=== PATIENT | female | born 1975 | race Caucasian/White ===

== ENCOUNTER 2017-03-16 11:57 | Emergency (ER) | payer BC ==
[2017-03-16] MEDS ORDERED: HYDROcodone/Acetaminophen 10/325 mg Tablet ONE (13:52)
[2017-03-16] MEDS ORDERED: methylPREDNISolone Sod Succ/PF 125 MG/2 ML VIAL ONE (13:52)
[2017-03-16 14:20] LABS: Bilirubin Negative (Negative); Blood, Urine Large (Negative); Glucose, Urine (Dipstick) Negative (Negative); Ketone, Urine Negative (Negative); Nitrite Negative (Negative); Protein, Urine (Dipstick) Negative (Neg-Trace); Urobilinogen 0.2 mg/dL (0.2-1.0)
[2017-03-16 14:30] LABS: Mean Platelet Volume 6.1 fL (7.4-10.4); Red Blood Cell (RBC) Count 4.29 mill/uL (4.20-5.40); White Blood Cell (WBC) Count 19.5 thou/uL (4.8-10.8)
[2017-03-16 14:32] LABS: Bacteria/HPF None Seen HPF (None Seen); Hyaline Casts/LPF 0-3 HYALINE CAST LPF (0-3 Hyaline); Squamous Epithelial None Seen HPF (0-3); WBC/HPF None Seen HPF (0-3)
[2017-03-16 14:45] LABS: Band 7 % (5-11); Neutrophil 75 % (42-75)
[2017-03-16 14:46] LABS: ALT (SGPT) 14 U/L (8-55); AST (SGOT) 21 U/L (5-34); Alkaline Phosphatase 54 U/L (40-150); Anion Gap 11 mmol/L (10-20); BUN (Urea Nitrogen) 5 mg/dL (7.0-18.7); Bilirubin, Total 0.2 mg/dL (0.2-1.2); Calc. Creatinine Clearance 0 mL/min (70-130); Calcium 8.6 mg/dL (7.8-10.44); Carbon Dioxide 29 mmol/L (22-29); Chloride 100 mmol/L (98-107); Estimated GFR-MDRD Greater than 90; Protein, Total 6.5 g/dL (6.0-8.3)
[2017-03-16] MEDS ORDERED: Potassium Chloride 20 MEQ TAB ONE (15:23)
== END 2017-03-16 15:22 | disposition home or self-care (01) ==
LOC: ERS 11:57
DX: M32.9 Systemic lupus erythematosus, unspecified (principal); H10.9 Unspecified conjunctivitis; I73.00 Raynaud's syndrome without gangrene; F17.210 Nicotine dependence, cigarettes, uncomplicated; M06.9 Rheumatoid arthritis, unspecified; M45.9 Ankylosing spondylitis of unspecified sites in spine
CPT/HCPCS: 36415; 80053; 81003; 81015; 85025; 96372; J2930

== ENCOUNTER 2017-04-16 08:53 | Emergency (ER) | payer BC ==
[2017-04-16 11:57] LABS: Bilirubin Negative (Negative); Blood, Urine Moderate (Negative); Glucose, Urine (Dipstick) Negative (Negative); Ketone, Urine Negative (Negative); Nitrite Negative (Negative); Protein, Urine (Dipstick) Negative (Neg-Trace); Urobilinogen 0.2 mg/dL (0.2-1.0)
[2017-04-16 12:02] LABS: Bacteria/HPF None Seen HPF (None Seen); Hyaline Casts/LPF 0-3 HYALINE CAST LPF (0-3 Hyaline); Squamous Epithelial 0-3 HPF (0-3); WBC/HPF None Seen HPF (0-3)
== END 2017-04-16 12:10 | disposition left against medical advice (07) ==
LOC: ERS 08:53
DX: R53.1 Weakness (principal); M06.9 Rheumatoid arthritis, unspecified; M32.9 Systemic lupus erythematosus, unspecified; Z79.891 Long term (current) use of opiate analgesic; Z79.899 Other long term (current) drug therapy
CPT/HCPCS: 81003; 81015; 99284

== ENCOUNTER 2017-05-24 17:29 | Inpatient (IN) | payer BC ==
[2017-05-24 18:39] LABS: #Eosinphils 0.1 thou/uL (0.0-0.7); #Lymphocytes 1.1 thou/uL (1.20-3.40); #Monocytes 0.6 thou/uL (0.11-0.59); #Neutrophils 5.7 thou/uL (1.40-6.50); %Basophils 0.4 % (0.0-1.0); %Eosinophils 1.8 % (0.0-10.0); %Lymphocytes 14.8 % (21.0-51.0); %Monocytes 7.4 % (0.0-10.0); Hematocrit 35.1 % (36.0-47.0); Mean Platelet Volume 6.9 fL (7.4-10.4); Red Blood Cell (RBC) Count 3.68 mill/uL (4.20-5.40); White Blood Cell (WBC) Count 7.6 thou/uL (4.8-10.8)
[2017-05-24 18:56] LABS: Lactic Acid - Sepsis 1.5 mmol/L (0.5-2.2)
[2017-05-24 19:01] LABS: ALT (SGPT) 13 U/L (8-55); AST (SGOT) 40 U/L (5-34); Alkaline Phosphatase 47 U/L (40-150); Anion Gap 13 mmol/L (10-20); BUN (Urea Nitrogen) 10 mg/dL (7.0-18.7); Bilirubin, Total Less than 0.2 mg/dL (0.2-1.2); Calc. Creatinine Clearance 0 mL/min (70-130); Carbon Dioxide 31 mmol/L (22-29); Chloride 102 mmol/L (98-107); Estimated GFR-MDRD 86; Globulin 3.6 g/dL (2.4-3.5); Protein, Total 6.7 g/dL (6.0-8.3)
--- NOTE | 2017-05-24 19:07 | RAD ---
CHEST PA AND LATERAL: 05/24/17 HISTORY: 41-year-old female with cough. Treated for pneumonia with high fever. COMPARISON: 11/14/16. There is some minimal patchy interstitial and alveolar opacities in the perihilar regions bilaterally , slightly worse on the left side raising concern for minimal bilateral atypical pneumonia or pneumon itis. Heart size is normal. There is no pleural effusion. IMPRESSION: Minimal patchy bilateral perihilar interstitial and alveolar opacity slightly worse on the left side raising concern for some type of nonspecific pneumonitis. These patchy changes, particularly in the l eft side due appear more prominent than on the prior study. POS: [facility]
[2017-05-24] MEDS ORDERED: Azithromycin 500 MG VIAL ONE (19:39)
[2017-05-24] MEDS ORDERED: cefTRIAXone\\ROCEPHIN 2 GM in Sodium Chloride 0.9% 100 ML IVPB SCH ×3 (19:45→23:59)
[2017-05-24] MEDS ORDERED: Doxycycline 100 MG CAP PO SCH (20:45)
[2017-05-24] MEDS ORDERED: Ondansetron ODT 4 MG TAB SL PRN (21:44)
[2017-05-24] MEDS ORDERED: Sodium Chloride 0.9% 1,000 ML IV SCH (21:44)
[2017-05-24] MEDS ORDERED: Ondansetron HCl/PF 4 MG/2 ML Vial IVP PRN ×3 (21:44→23:20)
[2017-05-24] MEDS ORDERED: Acetaminophen 325 MG TAB PO PRN (21:44)
[2017-05-24 21:50] VITALS: BMI 31.1
[2017-05-24] MEDS ORDERED: Mag-Al 1200 mg/1200 mg/30 ML UDCUP PO PRN (23:20)
[2017-05-24] MEDS ORDERED: Ondansetron ODT 4 MG TAB PO PRN ×2 (23:20)
[2017-05-24] MEDS ORDERED: hydrALAZINE 20 MG/ML VIAL SLOW IVP PRN (23:20)
[2017-05-24] MEDS ORDERED: Lorazepam 2 MG/ML VIAL SLOW IVP PRN (23:20)
[2017-05-24] MEDS: Zolpidem Tartrate 5 MG TAB PO PRN (23:59)
[2017-05-24] MEDS ORDERED: Fiorinal 325/50/40 mg Tablet PO SCH (23:59)
[2017-05-25] MEDS: HYDROcodone/Acetaminophen 10/325 mg Tablet PO PRN ×5 (00:14→20:49)
[2017-05-25] MEDS ORDERED: Famotidine 20 MG TAB PO SCH (00:15)
[2017-05-25] MEDS ORDERED: Doxycycline 100 MG CAP PO SCH (00:15)
[2017-05-25] MEDS ORDERED: sulfaSALAzine 500 MG TAB PO SCH (00:15)
[2017-05-25] MEDS ORDERED: Hydroxychloroquine Sulfate 200 MG TAB PO SCH (00:15)
[2017-05-25] MEDS ORDERED: Divalproex Sodium 250 MG (DR) TAB PO SCH (00:15)
[2017-05-25] MEDS ORDERED: Docusate 100 MG CAP PO SCH (00:15)
[2017-05-25] MEDS: Acetaminophen 325 MG TAB PO PRN ×4 (00:16→20:43)
--- NOTE | 2017-05-25 04:21 | HP ---
PRIMARY CARE PHYSICIAN: Dr. James. CHIEF COMPLAINT: Cough and shortness of breath. HISTORY OF PRESENT ILLNESS: Ms. Mae is a pleasant 41-year-old female who has a history of system ic lupus as well as rheumatoid arthritis. She was in her usual state of health until approximately a week prior to admission. She says that she was having problems with coughing and body aches and debra n all over. She says that the cough is primarily a dry cough. She has shortness of breath associate d with it as well as occasional chest pain. She went to the [facility] and was prescribed a Z-Bill and given "cephalosporin" and says that she completed the antibiotics. She started feeling bet ter after about 3-4 days, but then started feeling worse again. She says that she started having a h igh fever again, says that she was walking in the store and almost passed out and as a result came to the emergency room for evaluation. In the ER, she had a CT scan of the chest done, which showed pos sible patchy bilateral infiltrates and is being admitted for failed outpatient treatment for pneumoni a. REVIEW OF SYSTEMS: Constitutional: There have been subjective fever and chills. No night sweats, n o weight loss. HEENT: No headaches, no dizziness, no sore throat, rhinorrhea, neck pain, no adenopa thy. Pulmonary: As the history of present illness with no hemoptysis. Cardiovascular: She has had some chest pain off and on primarily with coughing. No PND, no orthopnea. Gastrointestinal: No ab dominal pain, no nausea, no vomiting, no change in bowels. Genitourinary: No urinary frequency, hem aturia, no hesitancy. Neurologic: No focal weakness, numbness, no seizures. Psychiatric: No sympt oms of anxiety or depression. Skin and Integument: No skin changes. No rash. PAST MEDICAL HISTORY: Significant for systemic lupus, rheumatoid arthritis, Raynaud's syndrome, panc reatitis, seizure disorder, mastoiditis, history of encephalitis and meningitis. PAST SURGICAL HISTORY: She has had a x3, bilateral tubal ligation. SOCIAL HISTORY: She smokes about a pack a day for 10 years. Denies any alcohol use. CODE STATUS: FULL CODE. FAMILY HISTORY: Significant for lupus. ALLERGIES: PENICILLIN, NSAIDS, LEVAQUIN, which causes some type of tendon problem. MEDICATIONS: Include Plaquenil 400 mg daily, sulfasalazine 500 mg 2 tabs in the evening, prednisone 20 mg daily, Plaquenil 200 mg 2 tabs in the evening, [place] 10/325 one tab q.4 hours, divalproex 750 m g at bedtime, Fiorinal p.r.n. and an inhaler. PHYSICAL EXAMINATION: GENERAL: She is alert and oriented. She appears to be in no acute distress. VITAL SIGNS: Blood pressure was 135/83, heart rate 80, respiratory rate of 16, temperature was 100.2 . HEENT: Pupils are equal, round, and reactive. Extraocular muscles are intact. Her sclerae are anic teric. Throat: No erythema, no exudates. NECK: No adenopathy, no bruits. LUNGS: She has got some rhonchi and some very very faint rales throughout. CARDIOVASCULAR: She has a normal S1, S2. I did not appreciate an S3 or S4. No murmurs, clicks or r ubs. ABDOMEN: Obese, it is soft, it is nontender, nondistended. Positive for bowel sounds. There is no rebound, no guarding. EXTREMITIES: There is no edema. NEUROLOGICALLY: The exam is nonfocal. LABORATORY DATA: White blood cell count 7.6, hemoglobin 12, hematocrit is 35.1, platelet count is 36 3. Sodium 142, potassium 4.0, chloride is 102, CO2 was 31, BUN of 10, creatinine 0.74, glucose is 85 . ASSESSMENT AND PLAN: 1. This is a pleasant 41-year-old female who is being admitted due to a failed outpatient treatment for pneumonia. She has already completed a full course of azithromycin and she has multiple antibiot ic allergies. For this reason, we will choose to continue Rocephin and add doxycycline to cover atyp icals and this has actually already been started in the ER. We will also add DuoNebs, as well as she may have some degree of chronic obstructive pulmonary disease as she has a history of smoking. 2. For systemic lupus, we will continue her usual medications and restart her on prednisone as well as Plaquenil. 3. For Seizure disorder, we will continue her divalproex and place her on some seizure precautions. 4. We will also place her on deep venous thrombosis and gastrointestinal prophylaxis.
[2017-05-25 05:13] LABS: Hematocrit 34.6 % (36.0-47.0); Mean Platelet Volume 6.2 fL (7.4-10.4); Red Blood Cell (RBC) Count 3.61 mill/uL (4.20-5.40); White Blood Cell (WBC) Count 6.1 thou/uL (4.8-10.8)
[2017-05-25 05:14] LABS: #Basophils 0.1 thou/uL (0.0-0.2); #Eosinphils 0.2 thou/uL (0.0-0.7); #Monocytes 0.6 thou/uL (0.11-0.59); #Neutrophils 4.2 thou/uL (1.40-6.50); %Basophils 1.3 % (0.0-1.0); %Eosinophils 3.1 % (0.0-10.0); %Lymphocytes 16.7 % (21.0-51.0); %Monocytes 10.2 % (0.0-10.0)
[2017-05-25 05:33] LABS: Anion Gap 12 mmol/L (10-20); BUN (Urea Nitrogen) 7 mg/dL (7.0-18.7); Calc. Creatinine Clearance 156 mL/min (70-130); Calcium 8.3 mg/dL (7.8-10.44); Carbon Dioxide 24 mmol/L (22-29); Chloride 105 mmol/L (98-107); Estimated GFR-MDRD Greater than 90
[2017-05-25] MEDS: Docusate 100 MG CAP PO SCH ×2 (08:07→20:43)
[2017-05-25] MEDS: predniSONE 20 MG TAB PO SCH (08:07)
[2017-05-25] MEDS: Doxycycline 100 MG CAP PO SCH ×2 (08:07→20:40)
[2017-05-25] MEDS: Famotidine 20 MG TAB PO SCH ×2 (08:08→20:42)
[2017-05-25] MEDS: Enoxaparin Sodium 40 MG/0.4 ML SYRINGE SC SCH (08:08)
[2017-05-25] MEDS ORDERED: Piperacillin/Tazobactam 4.5 GM in Sodium Chloride 0.9% 100 ML IVPB SCH (14:30)
--- NOTE | 2017-05-25 15:19 | PDOC.PN ---
- Subjective Encounter Start Date: 05/25/17 Encounter Start Time: 10:20 Pt seen for followup re; pneumonia. Reports cough, sputum, fevers. No chest pain. - Objective Resuscitation Status: Resuscitation Status FULL:Full Resuscitation MAR Reviewed: Yes Vital Signs & Weight: Vital Signs (12 hours) Temp Pulse Resp BP Pulse Ox 05/25/17 11:40 99.4 F 96 16 120/80 96 05/25/17 08:11 100.3 F H 91 16 123/85 94 L 05/25/17 08:00 100.3 F H 91 16 94 L 05/25/17 04:00 98.9 F 93 18 126/84 94 L Weight Weight 181 lb 3.2 oz I&O: 05/24/17 05/25/17 05/26/17 06:59 06:59 06:59 Intake Total 1860 Balance 1860 Result Diagrams: 05/25/17 04:00 05/25/17 04:00 Phys Exam - Physical Examination Constitutional: NAD HEENT: moist MMs Neck: supple Respiratory: clear to auscultation bilateral Cardiovascular: RRR Gastrointestinal: soft Neurological: moves all 4 limbs Psychiatric: normal affect Skin: no rash Dx/Plan (1) CAP (community acquired pneumonia) Code(s): J18.9 - PNEUMONIA, UNSPECIFIED ORGANISM Status: Acute (2) Seizure disorder Code(s): G40.909 - EPILEPSY, UNSP, NOT INTRACTABLE, WITHOUT STATUS EPILEPTICUS Status: Chronic (3) Lupus Code(s): M32.9 - SYSTEMIC LUPUS ERYTHEMATOSUS, UNSPECIFIED Status: Chronic (4) Migraine Code(s): G43.909 - MIGRAINE, UNSP, NOT INTRACTABLE, WITHOUT STATUS MIGRAINOSUS Status: Chronic Qualifiers: Migraine type: unspecified Intractability: intractable - Plan continue antibiotics, out of bed/ambulate * . Pt on chronic steroid therapy, consult PCCM for opinion and help with management. Pt failed cephalosporin therapy as outpatient. Change ceftriaxone to Zosyn. Pt has penicillin allergy (rash). Discussed chance of cross-reactivity. Change pt's status to inpatient. Continue valproic acid. Review of Systems - Review of Systems Constitutional: fever, chills, weakness Respiratory: Cough, Sputum. negative: Dry, Shortness of Breath, Hemoptysis, SOB with Excertion, Pleuritic Pain, Wheezing Cardiovascular: negative: chest pain, palpitations, orthopnea, paroxysmal nocturnal dyspnea, edema, light headedness - Medications/Allergies Allergies/Adverse Reactions: Allergies Allergy/AdvReac Type Severity Reaction Status Date / Time NSAIDS (Non-Steroidal Allergy Intermediate Rash Verified 05/24/17 21:44 Anti-Inflamma Penicillins Allergy Intermediate RASH, SOB Verified 05/24/17 21:44 levofloxacin [From Levaquin] Allergy Mild Verified 05/24/17 21:44 tramadol Allergy Mild RASH, ABD Verified 05/24/17 21:44 PAIN Medications: Current Medications Acetaminophen (Tylenol) 650 mg PO Q4H PRN PRN Reason: Headache/Fever or Pain Last Admin: 05/25/17 14:05 Dose: 650 mg Hydrocodone Bitart/Acetaminophen ([place] 10/325) 1 tab PO Q4H PRN PRN Reason: Moderate Pain (4-6) Last Admin: 05/25/17 11:57 Dose: 1 tab Al Hydroxide/Mg Hydroxide (Maalox) 15 ml PO Q4H PRN PRN Reason: Heartburn or Indigestion Albuterol/Ipratropium (Duoneb) 3 ml NEB Q4H PRN PRN Reason: SOB &/or Wheezing Butalbital/Aspirin/Caffeine (Fiorinal) 1 tab PO HS [facility] Divalproex Sodium (Depakote) 750 mg PO HS [facility] Docusate Sodium (Colace) 100 mg PO BID [facility] Last Admin: 05/25/17 08:07 Dose: Not Given Doxycycline Hyclate (Vibramycin) 100 mg PO BID [facility] Last Admin: 05/25/17 08:07 Dose: 100 mg Enoxaparin Sodium (Lovenox) 40 mg SC 0900 [facility] Last Admin: 05/25/17 08:08 Dose: 40 mg Famotidine (Pepcid) 20 mg PO BID [facility] Last Admin: 05/25/17 08:08 Dose: 20 mg Hydralazine HCl (Apresoline) 10 mg SLOW IVP Q4H PRN PRN Reason: Systolic BP > 180 Hydroxychloroquine Sulfate (Plaquenil) 400 mg PO HS [facility] Piperacillin Sod/Tazobactam (Sod 4.5 gm/ Sodium Chloride) 100 mls @ 200 mls/hr IVPB Q8HR [facility] Piperacillin Sod/Tazobactam (Sod 4.5 gm/ Sodium Chloride) 100 mls @ 200 mls/hr IVPB NOW [facility] Stop: 05/25/17 17:00 Last Admin: 05/25/17 15:08 Dose: 100 mls Lorazepam (Ativan) 2 mg SLOW IVP Q15MIN PRN PRN Reason: Seizures Ondansetron HCl (Zofran Odt) 4 mg PO Q6H PRN PRN Reason: Nausea/Vomiting Ondansetron HCl (Zofran) 4 mg IVP Q6H PRN PRN Reason: Nausea/Vomiting Prednisone (Prednisone) 20 mg PO QAM-[facility] Last Admin: 05/25/17 08:07 Dose: 20 mg Sulfasalazine (Azulfidine) 1,000 mg PO HS [facility] Zolpidem Tartrate (Ambien) 5 mg PO HSPRN PRN PRN Reason: Insomnia Last Admin: 05/24/17 23:59 Dose: 5 mg
[2017-05-25] MEDS: Zolpidem Tartrate 5 MG TAB PO PRN (20:40)
[2017-05-25] MEDS: Divalproex Sodium 250 MG (DR) TAB PO SCH (20:41)
[2017-05-25] MEDS: Hydroxychloroquine Sulfate 200 MG TAB PO SCH (20:41)
[2017-05-25] MEDS: sulfaSALAzine 500 MG TAB PO SCH (20:42)
[2017-05-25] MEDS: Fiorinal 325/50/40 mg Tablet PO SCH (20:56)
[2017-05-25] MEDS: Piperacillin/Tazobactam 4.5 GM in Sodium Chloride 0.9% 100 ML IVPB SCH (22:30)
[2017-05-26] MEDS: Zolpidem Tartrate 5 MG TAB PO PRN ×2 (00:57→20:41)
[2017-05-26] MEDS: HYDROcodone/Acetaminophen 10/325 mg Tablet PO PRN ×6 (00:57→22:29)
[2017-05-26] MEDS: Piperacillin/Tazobactam 4.5 GM in Sodium Chloride 0.9% 100 ML IVPB SCH ×3 (06:50→22:28)
[2017-05-26] MEDS: Docusate 100 MG CAP PO SCH ×2 (08:08→20:42)
[2017-05-26] MEDS: Doxycycline 100 MG CAP PO SCH ×2 (08:10→20:40)
[2017-05-26] MEDS: Enoxaparin Sodium 40 MG/0.4 ML SYRINGE SC SCH (08:10)
[2017-05-26] MEDS: Famotidine 20 MG TAB PO SCH ×2 (08:10→20:42)
[2017-05-26] MEDS: predniSONE 20 MG TAB PO SCH (08:10)
[2017-05-26] MEDS: Acetaminophen 325 MG TAB PO PRN ×2 (09:41→22:30)
--- NOTE | 2017-05-26 13:52 | PDOC.PN ---
- Subjective Encounter Start Date: 05/26/17 Encounter Start Time: 09:40 Pt seen for followup re; pneumonia. Cough+. Sputum+. No fever today. - Objective Resuscitation Status: Resuscitation Status FULL:Full Resuscitation MAR Reviewed: Yes Vital Signs & Weight: Vital Signs (12 hours) Temp Pulse Resp BP Pulse Ox 05/26/17 10:16 71 14 98 05/26/17 08:00 98.5 F 63 16 05/26/17 07:29 98.5 F 63 16 106/73 97 05/26/17 05:01 69 12 98 05/26/17 03:59 98.7 F 60 16 102/67 98 Weight Weight 181 lb 3.2 oz I&O: 05/25/17 05/26/17 05/27/17 06:59 06:59 06:59 Intake Total 1859 1899 Balance 1859 1899 Result Diagrams: 05/25/17 04:00 05/25/17 04:00 Phys Exam - Physical Examination Obese HEENT: moist MMs, oral pharynx no lesions Neck: supple Respiratory: no wheezing, no rales, no rhonchi, clear to auscultation bilateral Cardiovascular: RRR Gastrointestinal: soft Musculoskeletal: pulses present Neurological: moves all 4 limbs Psychiatric: normal affect Skin: no rash Dx/Plan (1) CAP (community acquired pneumonia) Code(s): J18.9 - PNEUMONIA, UNSPECIFIED ORGANISM Status: Acute (2) Seizure disorder Code(s): G40.909 - EPILEPSY, UNSP, NOT INTRACTABLE, WITHOUT STATUS EPILEPTICUS Status: Chronic (3) Lupus Code(s): M32.9 - SYSTEMIC LUPUS ERYTHEMATOSUS, UNSPECIFIED Status: Chronic (4) Migraine Code(s): G43.909 - MIGRAINE, UNSP, NOT INTRACTABLE, WITHOUT STATUS MIGRAINOSUS Status: Chronic Qualifiers: Migraine type: unspecified Intractability: intractable - Plan continue antibiotics, out of bed/ambulate, DVT proph w/lovenox * . Continue IV Zosyn, doxycycline. Await pulmonology consult. Await blood cultures. Continue Plaquenil, prednisone, sulfasalazine. Review of Systems - Review of Systems Constitutional: weakness, malaise. negative: fever, chills, sweats Respiratory: Cough, Sputum. negative: Dry, Shortness of Breath, Hemoptysis, SOB with Excertion, Pleuritic Pain, Wheezing Cardiovascular: negative: chest pain, palpitations, orthopnea, paroxysmal nocturnal dyspnea, edema, light headedness - Medications/Allergies Allergies/Adverse Reactions: Allergies Allergy/AdvReac Type Severity Reaction Status Date / Time NSAIDS (Non-Steroidal Allergy Intermediate Rash Verified 05/24/17 21:44 Anti-Inflamma Penicillins Allergy Intermediate RASH, SOB Verified 05/24/17 21:44 levofloxacin [From Levaquin] Allergy Mild Verified 05/24/17 21:44 tramadol Allergy Mild RASH, ABD Verified 05/24/17 21:44 PAIN Medications: Current Medications Acetaminophen (Tylenol) 650 mg PO Q4H PRN PRN Reason: Headache/Fever or Pain Last Admin: 05/26/17 09:41 Dose: 650 mg Hydrocodone Bitart/Acetaminophen ([place] 10/325) 1 tab PO Q4H PRN PRN Reason: Moderate Pain (4-6) Last Admin: 05/26/17 10:25 Dose: 1 tab Al Hydroxide/Mg Hydroxide (Maalox) 15 ml PO Q4H PRN PRN Reason: Heartburn or Indigestion Albuterol/Ipratropium (Duoneb) 3 ml NEB Q4H PRN PRN Reason: SOB &/or Wheezing Last Admin: 05/26/17 10:16 Dose: 3 ml Butalbital/Aspirin/Caffeine (Fiorinal) 1 tab PO HS [facility] Last Admin: 05/25/17 20:56 Dose: 1 tab Divalproex Sodium (Depakote) 750 mg PO [facility] Last Admin: 05/25/17 20:41 Dose: 750 mg Docusate Sodium (Colace) 100 mg PO BID [facility] Last Admin: 05/26/17 08:08 Dose: Not Given Doxycycline Hyclate (Vibramycin) 100 mg PO BID [facility] Last Admin: 05/26/17 08:10 Dose: 100 mg Enoxaparin Sodium (Lovenox) 40 mg SC 0900 [facility] Last Admin: 05/26/17 08:10 Dose: 40 mg Famotidine (Pepcid) 20 mg PO BID [facility] Last Admin: 05/26/17 08:10 Dose: 20 mg Hydralazine HCl (Apresoline) 10 mg SLOW IVP Q4H PRN PRN Reason: Systolic BP > 180 Hydroxychloroquine Sulfate (Plaquenil) 400 mg PO HS [facility] Last Admin: 05/25/17 20:41 Dose: 400 mg Piperacillin Sod/Tazobactam (Sod 4.5 gm/ Sodium Chloride) 100 mls @ 200 mls/hr IVPB Q8HR [facility] Last Admin: 05/26/17 06:50 Dose: 100 mls Lorazepam (Ativan) 2 mg SLOW IVP Q15MIN PRN PRN Reason: Seizures Ondansetron HCl (Zofran Odt) 4 mg PO Q6H PRN PRN Reason: Nausea/Vomiting Ondansetron HCl (Zofran) 4 mg IVP Q6H PRN PRN Reason: Nausea/Vomiting Prednisone (Prednisone) 20 mg PO QAM-[facility] Last Admin: 05/26/17 08:10 Dose: 20 mg Sulfasalazine (Azulfidine) 1,000 mg PO HS [facility] Last Admin: 05/25/17 20:42 Dose: 1,000 mg Zolpidem Tartrate (Ambien) 5 mg PO HSPRN PRN PRN Reason: Insomnia Last Admin: 05/26/17 00:57 Dose: 5 mg
[2017-05-26 14:22] LABS: #Lymphocytes 0.5 thou/uL (1.20-3.40); #Monocytes 0.3 thou/uL (0.11-0.59); #Neutrophils 5.3 thou/uL (1.40-6.50); %Eosinophils 0.3 % (0.0-10.0); %Lymphocytes 7.5 % (21.0-51.0); %Monocytes 5.6 % (0.0-10.0); Hematocrit 36.5 % (36.0-47.0); Red Blood Cell (RBC) Count 3.78 mill/uL (4.20-5.40); White Blood Cell (WBC) Count 6.1 thou/uL (4.8-10.8)
[2017-05-26 14:44] LABS: Anion Gap 12 mmol/L (10-20); BUN (Urea Nitrogen) 6 mg/dL (7.0-18.7); Calc. Creatinine Clearance 132 mL/min (70-130); Calcium 8.9 mg/dL (7.8-10.44); Carbon Dioxide 30 mmol/L (22-29); Chloride 106 mmol/L (98-107); Estimated GFR-MDRD 89
[2017-05-26] MEDS: Fiorinal 325/50/40 mg Tablet PO SCH (20:40)
[2017-05-26] MEDS: Divalproex Sodium 250 MG (DR) TAB PO SCH (20:41)
[2017-05-26] MEDS: Hydroxychloroquine Sulfate 200 MG TAB PO SCH (20:42)
[2017-05-26] MEDS: sulfaSALAzine 500 MG TAB PO SCH (20:43)
[2017-05-26] MEDS ORDERED: predniSONE 5 MG TAB PO SCH (21:00)
[2017-05-27] MEDS: Zolpidem Tartrate 5 MG TAB PO PRN ×2 (00:21→23:20)
[2017-05-27] MEDS: Acetaminophen 325 MG TAB PO PRN (02:31)
[2017-05-27] MEDS: HYDROcodone/Acetaminophen 10/325 mg Tablet PO PRN ×6 (02:33→23:19)
[2017-05-27 05:24] LABS: #Lymphocytes 1.4 thou/uL (1.20-3.40); #Monocytes 0.7 thou/uL (0.11-0.59); #Neutrophils 6.9 thou/uL (1.40-6.50); %Basophils 0.3 % (0.0-1.0); %Eosinophils 0.3 % (0.0-10.0); %Lymphocytes 15.8 % (21.0-51.0); %Monocytes 7.2 % (0.0-10.0); Hematocrit 35.5 % (36.0-47.0); Mean Platelet Volume 6.4 fL (7.4-10.4); Red Blood Cell (RBC) Count 3.69 mill/uL (4.20-5.40)
[2017-05-27 05:46] LABS: Anion Gap 15 mmol/L (10-20); BUN (Urea Nitrogen) 5 mg/dL (7.0-18.7); Calc. Creatinine Clearance 144 mL/min (70-130); Carbon Dioxide 23 mmol/L (22-29); Chloride 107 mmol/L (98-107); Estimated GFR-MDRD Greater than 90
[2017-05-27] MEDS: Piperacillin/Tazobactam 4.5 GM in Sodium Chloride 0.9% 100 ML IVPB SCH ×3 (06:32→23:20)
--- NOTE | 2017-05-27 07:00 | CON ---
DATE OF CONSULTATION: 05/26/2017 HISTORY OF PRESENT ILLNESS: Ms. Mae is a very pleasant woman who has both lupus and rheumatoid a rthritis. She also has Raynaud's and seizure disorder. She is followed by the [facility] rheum atologist. She has had meningitis, encephalitis in the past and has seizure disorder. She presented with coughing and body aching. Her sons had the influenza. She was seen in Urgent Care and given a Z-Bill and cephalosporins. She started feeling better and the n also had been started feeling worse, having fever again. Chest x-ray was only had subtle abnormalities as did the chest CT. She subsequently was admitted for pneumonia. PAST MEDICAL HISTORY: Remarkable for C-sections x3, tubal ligation, history of mastoiditis for which she had a PICC line and was cared for by Dr. العراقي she tells me. She has been a smoker, up to a pack a day. She denies daily drinking. She does not use drugs. FAMILY HISTORY: Positive for vasculitis. ALLERGIES: She reports PENICILLIN, NONSTEROIDAL and QUINOLONE intolerance. SOCIAL HISTORY: She is . Her is in the room, her son was in the room. I believe the Infectious Disease director of services in her area of interest is influenza. MEDICATIONS: She is on Plaquenil, sulfasalazine, prednisone, [place], valproate and Fiorinal p.r.n. as well as metered dose inhaler some kind. PHYSICAL EXAMINATION: GENERAL: She is in no distress. She actually looks quite well. VITAL SIGNS: She is afebrile. She was febrile to 100.9 shortly after admission on the night of the . Heart rate is in the 70s, respiratory rate is in the teens, oximetry is 98. HEENT: Pupils are equal. Sclerae is anicteric. NECK: Supple. LUNGS: Clear. HEART: Regular rhythm. S1 and S2 are normal. ABDOMEN: Soft and nontender. EXTREMITIES: Without asymmetry. LABORATORY DATA: White count 6.1, hemoglobin 12.3, platelets 347. Sodium 144, potassium 3.6, chloride 106, bicarb 30, BUN 6, creatinine 0.7. I reviewed her CT and bacilio st radiograph. IMPRESSION AND PLAN: 1. Pneumonia? influenza related versus an atypical organism. I would have thought Zithromax would h ave helped, but she is currently on doxycycline, so Zosyn appears to have defervesced. I doubt her s ubtle patchy infiltrates or pneumococcal. I doubt this is a lupus flare, but certainly must remain in the differential. I doubt this is rheuma toid lung disease. I will be happy to follow with the other physicians caring for her. She remains afebrile. She should go home with 2 weeks of doxycycline and continue with her steroids and her othe r medicines for vasculitis.
[2017-05-27] MEDS: Doxycycline 100 MG CAP PO SCH ×2 (08:57→21:37)
[2017-05-27] MEDS: Famotidine 20 MG TAB PO SCH ×2 (08:58→21:36)
[2017-05-27] MEDS: Enoxaparin Sodium 40 MG/0.4 ML SYRINGE SC SCH (08:58)
[2017-05-27] MEDS: predniSONE 20 MG TAB PO SCH (08:58)
[2017-05-27] MEDS: Docusate 100 MG CAP PO SCH ×2 (09:05→21:34)
[2017-05-27] MEDS ORDERED: Chloraseptic Spray 180 ml Bottle PO PRN (11:22)
[2017-05-27] MEDS ORDERED: Cepastat Lozenges 1 LOZ PO PRN (11:22)
--- NOTE | 2017-05-27 11:58 | PDOC.PN ---
- Subjective Encounter Start Date: 05/27/17 Encounter Start Time: 11:30 Patient seen and examined. Cough - nonproductive. No overnight events - Objective Resuscitation Status: Resuscitation Status FULL:Full Resuscitation MAR Reviewed: Yes Vital Signs & Weight: Vital Signs (12 hours) Temp Pulse Resp BP BP Pulse Ox 05/27/17 11:34 98.4 F 66 16 121/79 05/27/17 08:00 98.6 F 67 16 114/73 94 L 05/27/17 06:35 98.8 F 82 18 135/84 99 Weight Weight 181 lb 3.2 oz I&O: 05/26/17 05/27/17 05/28/17 06:59 06:59 06:59 Intake Total 1900 360 Balance 1900 360 Result Diagrams: 05/27/17 04:00 05/27/17 04:00 Phys Exam - Physical Examination Constitutional: NAD Respiratory: no wheezing, no rhonchi Scat rales at bases Cardiovascular: RRR, no rub Gastrointestinal: soft, non-tender, positive bowel sounds Musculoskeletal: no edema Neurological: moves all 4 limbs Dx/Plan - Plan continue antibiotics, respiratory therapy, out of bed/ambulate, DVT proph w/ lovenox, DVT proph w/SCDs IMPRESSION: 1. Sepsis due to [place] Pneumonia ?Atypical organism - failed outpatient Rx 2. SLE - on Chronic Steroids 3. RA 4. Seizure disorder 5. Hypokalemia - corrected PLAN: * Cont Zosyn/Doxy * Pulm following * Cont to monitor * DC home in AM if afebrile (had temp 100.2 last night per patient - [facility] * Cont current meds as below * Change Prednisone to 20 mg daily (now is on 20 mg QAM with 10 mg HS) * Add Antitussives Review of Systems - Review of Systems Respiratory: Cough, Dry. negative: Shortness of Breath, Hemoptysis, SOB with Excertion, Pleuritic Pain, Sputum, Wheezing Cardiovascular: negative: chest pain, palpitations, orthopnea, paroxysmal nocturnal dyspnea, edema, light headedness Gastrointestinal: negative: Nausea, Vomiting, Abdominal Pain, Diarrhea, Constipation, Melena, Hematochezia - Medications/Allergies Allergies/Adverse Reactions: Allergies Allergy/AdvReac Type Severity Reaction Status Date / Time NSAIDS (Non-Steroidal Allergy Intermediate Rash Verified 05/24/17 21:44 Anti-Inflamma Penicillins Allergy Intermediate RASH, SOB Verified 05/24/17 21:44 levofloxacin [From Levaquin] Allergy Mild Verified 05/24/17 21:44 tramadol Allergy Mild RASH, ABD Verified 05/24/17 21:44 PAIN Medications: Current Medications Acetaminophen (Tylenol) 650 mg PO Q4H PRN PRN Reason: Headache/Fever or Pain Last Admin: 05/27/17 02:31 Dose: 650 mg Hydrocodone Bitart/Acetaminophen ([place] 10/325) 1 tab PO Q4H PRN PRN Reason: Moderate Pain (4-6) Last Admin: 05/27/17 10:19 Dose: 1 tab Al Hydroxide/Mg Hydroxide (Maalox) 15 ml PO Q4H PRN PRN Reason: Heartburn or Indigestion Albuterol/Ipratropium (Duoneb) 3 ml NEB Q4H PRN PRN Reason: SOB &/or Wheezing Last Admin: 05/26/17 18:55 Dose: 3 ml Benzonatate (Tessalon) 100 mg PO TID PRN PRN Reason: Cough Butalbital/Aspirin/Caffeine (Fiorinal) 1 tab PO HS [facility] Last Admin: 05/26/17 20:40 Dose: 1 tab Divalproex Sodium (Depakote) 750 mg PO HS [facility] Last Admin: 05/26/17 20:41 Dose: 750 mg Docusate Sodium (Colace) 100 mg PO BID [facility] Last Admin: 05/27/17 09:05 Dose: Not Given Doxycycline Hyclate (Vibramycin) 100 mg PO BID [facility] Last Admin: 05/27/17 08:57 Dose: 100 mg Enoxaparin Sodium (Lovenox) 40 mg SC 0900 [facility] Last Admin: 05/27/17 08:58 Dose: 40 mg Famotidine (Pepcid) 20 mg PO BID [facility] Last Admin: 05/27/17 08:58 Dose: 20 mg Guaifenesin (Robitussin Sf) 200 mg PO Q4H PRN PRN Reason: Cough Guaifenesin (Mucinex) 600 mg PO Q12HR [facility] Guaifenesin/Codeine Phosphate (Robitussin Ac) 5 ml PO Q6H PRN PRN Reason: Cough Hydralazine HCl (Apresoline) 10 mg SLOW IVP Q4H PRN PRN Reason: Systolic BP > 180 Hydroxychloroquine Sulfate (Plaquenil) 400 mg PO [facility] Last Admin: 05/26/17 20:42 Dose: 400 mg Piperacillin Sod/Tazobactam (Sod 4.5 gm/ Sodium Chloride) 100 mls @ 200 mls/hr IVPB Q8HR [facility] Last Admin: 05/27/17 06:32 Dose: 100 mls Miscellaneous Medication (Pharmacy To Dose) 1 each IVPB ONE PRN PRN Reason: Pharmacy to dose Ondansetron HCl (Zofran Odt) 4 mg PO Q6H PRN PRN Reason: Nausea/Vomiting Ondansetron HCl (Zofran) 4 mg IVP Q6H PRN PRN Reason: Nausea/Vomiting Phenol (Chloraseptic [place] 180 Ml Bot) 0 ml PO BIDPRN PRN PRN Reason: Sore Throat Prednisone (Prednisone) 20 mg PO QA-[facility] Last Admin: 05/27/17 08:58 Dose: 20 mg Saccharomyces Boulardii (Florastor) 250 mg PO [facility] Sulfasalazine (Azulfidine) 1,000 mg PO [facility] Last Admin: 05/26/17 20:43 Dose: 1,000 mg Throat Lozenges (Cepastat Lozenges) 1 alvina PO Q2H PRN PRN Reason: Sore Throat Zolpidem Tartrate (Ambien) 5 mg PO HSPRN PRN PRN Reason: Insomnia Last Admin: 05/27/17 00:21 Dose: 5 mg
[2017-05-27] MEDS: guaiFENesin/Codeine Phosphate 200 mg/20 mg 10 ml UD Cup PO PRN ×2 (12:35→18:55)
[2017-05-27] MEDS: Benzonatate 100 MG CAP PO PRN (14:15)
--- NOTE | 2017-05-27 15:47 | PRG ---
DATE OF SERVICE: 05/27/2017 SUBJECTIVE: The patient feels better and thinks she should be able go home by tomorrow. OBJECTIVE: VITAL SIGNS: Temperature 98.4, pulse 66, respirations 16, O2 sat 94%, blood pressure 121/79. HEENT: Unremarkable. NECK: No JVD. CHEST: Clear without wheezing or rhonchi. CARDIAC: S1 and S2 regular. ABDOMEN: Soft. EXTREMITIES: No edema. LABORATORY DATA: White blood cell count 9.0, hematocrit 35.5, platelet count 361. Sodium 141, potas sium 3.9, chloride 107, CO2 23, BUN 5, creatinine 0.6, glucose 85. ASSESSMENT: Pneumonia versus lupus flare. PLAN: Per Dr. Lai's note yesterday, she should be able to go home on oral doxycycline and steroid taper. She has been advised not to smoke. I think she can be discharged home as quickly as tomorrow . No further recommendations from our standpoint. Please recall if further assistance is needed.
[2017-05-27] MEDS ORDERED: Saccharomyces boulardii 250 MG CAP PO SCH (21:00)
[2017-05-27] MEDS: Hydroxychloroquine Sulfate 200 MG TAB PO SCH (21:35)
[2017-05-27] MEDS: guaiFENesin ER 600 MG TAB PO SCH (21:35)
[2017-05-27] MEDS: sulfaSALAzine 500 MG TAB PO SCH (21:36)
[2017-05-27] MEDS: Divalproex Sodium 250 MG (DR) TAB PO SCH (21:36)
[2017-05-27] MEDS: Fiorinal 325/50/40 mg Tablet PO SCH (21:37)
[2017-05-28] MEDS: Diabetic Tussin 200 MG/10 ML UDCUP PO PRN ×2 (03:01→15:18)
[2017-05-28] MEDS: HYDROcodone/Acetaminophen 10/325 mg Tablet PO PRN ×4 (03:04→16:17)
[2017-05-28] MEDS: Piperacillin/Tazobactam 4.5 GM in Sodium Chloride 0.9% 100 ML IVPB SCH ×2 (06:37→15:13)
[2017-05-28] MEDS: Enoxaparin Sodium 40 MG/0.4 ML SYRINGE SC SCH (08:01)
[2017-05-28] MEDS: predniSONE 20 MG TAB PO SCH (08:01)
[2017-05-28] MEDS: Famotidine 20 MG TAB PO SCH (08:01)
[2017-05-28] MEDS: guaiFENesin ER 600 MG TAB PO SCH (08:01)
[2017-05-28] MEDS: guaiFENesin/Codeine Phosphate 200 mg/20 mg 10 ml UD Cup PO PRN (08:02)
[2017-05-28] MEDS: Doxycycline 100 MG CAP PO SCH (09:48)
[2017-05-28] MEDS: Docusate 100 MG CAP PO SCH (09:50)
[2017-05-28] MEDS: Benzonatate 100 MG CAP PO PRN (12:12)
[2017-05-28 17:04] VITALS: BP 120/80; TEMP 98.7
--- NOTE | 2017-05-28 22:18 | DIS ---
DISCHARGE DATE: 05/28/2017 DISCHARGE DISPOSITION: Home. FOLLOWUP: Follow up with primary care physician, Dr. James in 1 week. Follow up with Dr. Lai in 2 weeks. ALLERGIES: Patient is allergic to LEVAQUIN, PENICILLIN, TRAMADOL, and NSAIDs. Patient was seen on the day of discharge, denies any new complaints. Overall, feels better. DISCHARGE MEDICATIONS: Tylenol as needed, Tessalon Perles as needed, Fiorinal 1 capsule at bedtime, Depakote 750 mg at bedtime, doxycycline 100 mg b.i.d. for the next 5 days, Mucinex 600 mg b.i.d., Nor co as needed, Plaquenil 400 mg at bedtime, prednisone 10 mg at bedtime, sulfasalazine 1000 mg at bedt sydni. INPATIENT PHYS THER: Pulmonary, Dr. Lai. BRIEF HOSPITAL COURSE: Patient is a 41-year-old female with systemic lupus erythematosus and rheumat oid arthritis, presented to the hospital with cough and shortness of breath. Her workup was consiste nt with pneumonia. Patient was seen by Pulmonary, Dr. Lai. She received Zosyn with doxycycline. She has been afebrile over the last 24 hours. Maximum temperature at this hospitalization was 100.9. She will continue doxycycline for 5 more days. She has been cleared by Pulmonary for discharge. SIGNIFICANT LABORATORY DATA: 1. CBC showed WBC 7.6 with hemoglobin 12.0 with 75.6% neutrophils. 2. Potassium 3.4, corrected. 3. Blood cultures were negative. 4. Influenza testing was negative. 5. Rapid Strep test was negative. FINAL DIAGNOSES: 1. Sepsis secondary to community-acquired pneumonia, suspected atypical organism. 2. Systemic lupus erythematosus, on chronic steroids. 3. Rheumatoid arthritis. 4. Seizure disorder. 5. Hypokalemia. 6. Chronic pain syndrome. 7. Obesity with a BMI 31.1. 8. Slightly abnormal LFTs. Plan of care was discussed with the patient in detail. She stated understanding.
== END 2017-05-28 16:45 | disposition home or self-care (01) | DRG 871 ==
LOC: ERS 17:29 → T4-A 20:05 → OBSVTOIN 20:05
PROVIDERS: ADMIT Internal Medicine Infectious Disease; ATTEND Internal Medicine Infectious Disease
DX: A41.9 Sepsis, unspecified organism (principal); J18.9 Pneumonia, unspecified organism; M32.9 Systemic lupus erythematosus, unspecified; M06.9 Rheumatoid arthritis, unspecified; G40.909 Epilepsy, unspecified, not intractable, without status epilepticus; E87.6 Hypokalemia; E66.9 Obesity, unspecified; G89.4 Chronic pain syndrome; G43.909 Migraine, unspecified, not intractable, without status migrainosus; F17.210 Nicotine dependence, cigarettes, uncomplicated; R94.5 Abnormal results of liver function studies; Z68.31 Body mass index [BMI] 31.0-31.9, adult; Z88.1 Allergy status to other antibiotic agents; Z88.0 Allergy status to penicillin; Z88.8 Allergy status to other drugs, medicaments and biological substances; Z88.5 Allergy status to narcotic agent; Z79.52 Long term (current) use of systemic steroids
CPT/HCPCS: 36415; 71020; 80048; 80053; 83605; 85025; 87040; 87081; 87430; 94640; 96360; 99406; J0456; J0696; J1650; J2060; J2543; J7050; J7506; J7620

== ENCOUNTER 2017-07-08 17:58 | Emergency (ER) | payer BC | END 2017-07-08 18:50 | disposition left against medical advice (07) | LOC: ERS 17:58 | DX: Z53.21 Procedure and treatment not carried out due to patient leaving prior to being seen by health care provider (principal) ==

== ENCOUNTER 2017-07-11 16:07 | Emergency (ER) | payer BC ==
[2017-07-11 16:37] LABS: Bilirubin Negative (Negative); Blood, Urine Moderate (Negative); Clarity CLEAR (Clear); Glucose, Urine (Dipstick) Negative (Negative); Leukocyte Negative (Negative); Nitrite Negative (Negative); Protein, Urine (Dipstick) Negative (Neg-Trace); Specific Gravity, Urine 1.021 (1.002-1.036); Urobilinogen 0.2 mg/dL (0.2-1.0)
[2017-07-11 16:38] LABS: Bacteria/HPF Rare-Few HPF (None Seen); Hyaline Casts/LPF 0-3 HYALINE CAST LPF (0-3 Hyaline); Pregnancy Test - Urine (BHCG) Negative (Negative); Pregu Control Background? CLEAR/WHITE (CLR/WHITE); Pregu Control Bar Appear? YES (CONTROL BAR); Specific Gravity 1.021 (1.002-1.036); WBC/HPF 0-3 HPF (0-3)
[2017-07-11 17:52] LABS: #Basophils 0.1 thou/uL (0.0-0.2); #Eosinphils 0.1 thou/uL (0.0-0.7); #Lymphocytes 2.1 thou/uL (1.20-3.40); #Monocytes 0.7 thou/uL (0.11-0.59); #Neutrophils 3.9 thou/uL (1.40-6.50); %Basophils 0.8 % (0.0-1.0); %Eosinophils 1.4 % (0.0-10.0); %Lymphocytes 30.6 % (21.0-51.0); %Monocytes 10.3 % (0.0-10.0); %Neutrophils 56.9 % (42.0-75.0); Mean Corpuscular HGB CONC 34.1 g/dL (32.0-36.0); Mean Corpuscular Hemoglobin 33.2 pg (27.0-31.0); Mean Corpuscular Volume 97.4 fl (81.0-99.0); Mean Platelet Volume 6.2 fL (7.4-10.4); Platelet Count 334 thou/uL (130-400); RBC Distribution Width 13.8 % (11.5-14.5); Red Blood Cell (RBC) Count 4.22 mill/uL (4.20-5.40); White Blood Cell (WBC) Count 6.8 thou/uL (4.8-10.8)
[2017-07-11] MEDS ORDERED: Acetaminophen 500 MG TAB ONE (17:54)
[2017-07-11] MEDS ORDERED: Ondansetron HCl/PF 4 MG/2 ML Vial ONE (17:54)
--- NOTE | 2017-07-11 18:05 | RAD ---
PORTABLE CHEST: 07/11/17 HISTORY: Cough. Lungs are clear. No infiltrate seen. Heart and mediastinum unremarkable. IMPRESSION: No acute finding. POS: [facility]
[2017-07-11 18:06] LABS: Anion Gap 10 mmol/L (10-20); BUN (Urea Nitrogen) 10 mg/dL (7.0-18.7); Calc. Creatinine Clearance 0 mL/min (70-130); Calcium 8.8 mg/dL (7.8-10.44); Carbon Dioxide 28 mmol/L (22-29); Chloride 104 mmol/L (98-107); Estimated GFR-MDRD Greater than 90; Glucose 82 mg/dL (70-105); Potassium 3.3 mmol/L (3.5-5.1); Sodium 139 mmol/L (136-145)
[2017-07-11 18:07] LABS: ALT (SGPT) 11 U/L (8-55); AST (SGOT) 14 U/L (5-34); Albumin 3.6 g/dL (3.5-5.0); Alkaline Phosphatase 52 U/L (40-150); Anion Gap 12 mmol/L (10-20); BUN (Urea Nitrogen) 9 mg/dL (7.0-18.7); Bilirubin, Total 0.3 mg/dL (0.2-1.2); Calc. Creatinine Clearance 0 mL/min (70-130); Calcium 8.6 mg/dL (7.8-10.44); Carbon Dioxide 27 mmol/L (22-29); Chloride 105 mmol/L (98-107); Estimated GFR-MDRD Greater than 90; Globulin 2.9 g/dL (2.4-3.5); Glucose 80 mg/dL (70-105); Potassium 3.3 mmol/L (3.5-5.1); Protein, Total 6.5 g/dL (6.0-8.3); Sodium 141 mmol/L (136-145)
== END 2017-07-11 20:11 | disposition home or self-care (01) ==
LOC: ERS 16:07
DX: B34.9 Viral infection, unspecified (principal); M32.9 Systemic lupus erythematosus, unspecified; M06.9 Rheumatoid arthritis, unspecified; F17.210 Nicotine dependence, cigarettes, uncomplicated; Z71.6 Tobacco abuse counseling
CPT/HCPCS: 36415; 71045; 80053; 81003; 81015; 81025; 85025; 96361; 96374; 99406; J2405

== ENCOUNTER 2017-09-19 18:31 | Emergency (ER) | payer BC, SELFPAY ==
[2017-09-19] MEDS ORDERED: Morphine 4 MG/ML VIAL ONE (19:43)
[2017-09-19] MEDS ORDERED: Ondansetron ODT 4 MG TAB ONE (19:44)
[2017-09-19] MEDS ORDERED: Acetaminophen 500 MG TAB ONE (19:44)
[2017-09-19 20:14] LABS: #Eosinphils 0.1 thou/uL (0.0-0.7); #Lymphocytes 1.7 thou/uL (1.20-3.40); #Monocytes 0.4 thou/uL (0.11-0.59); #Neutrophils 9.4 thou/uL (1.40-6.50); %Basophils 0.1 % (0.0-1.0); %Eosinophils 0.6 % (0.0-10.0); %Lymphocytes 14.7 % (21.0-51.0); %Monocytes 3.6 % (0.0-10.0); %Neutrophils 81.1 % (42.0-75.0); Hemoglobin 12.6 g/dL (12.0-16.0); Mean Corpuscular HGB CONC 35.2 g/dL (32.0-36.0); Mean Corpuscular Volume 93.8 fl (81.0-99.0); Mean Platelet Volume 6.6 fL (7.4-10.4); Platelet Count 274 thou/uL (130-400); Red Blood Cell (RBC) Count 3.83 mill/uL (4.20-5.40); White Blood Cell (WBC) Count 11.6 thou/uL (4.8-10.8)
--- NOTE | 2017-09-19 20:33 | RAD ---
PA AND LATERAL OF THE CHEST: 09/19/17 INDICATION: Right flank pain, fever, headache and cough. COMPARISON: Prior exam dated 07/11/17. FINDINGS: No consolidation is evident. There is stable cardiomegaly. Mild multilevel spondylosis thoracic spin e is similar. IMPRESSION: No acute cardiopulmonary abnormality. POS: [facility]
[2017-09-19 20:36] LABS: ALT (SGPT) 10 U/L (8-55); AST (SGOT) 26 U/L (5-34); Albumin 3.6 g/dL (3.5-5.0); Alkaline Phosphatase 65 U/L (40-150); Anion Gap 10 mmol/L (10-20); BUN (Urea Nitrogen) 7 mg/dL (7.0-18.7); Bilirubin, Total 0.3 mg/dL (0.2-1.2); Calc. Creatinine Clearance 0 mL/min (70-130); Calcium 8.5 mg/dL (7.8-10.44); Carbon Dioxide 26 mmol/L (22-29); Chloride 105 mmol/L (98-107); Estimated GFR-MDRD Greater than 90; Globulin 2.9 g/dL (2.4-3.5); Glucose 117 mg/dL (70-105); Potassium 3.7 mmol/L (3.5-5.1); Protein, Total 6.5 g/dL (6.0-8.3); Sodium 137 mmol/L (136-145)
[2017-09-19] MEDS ORDERED: Dexamethasone 4 MG TAB ONE (21:03)
== END 2017-09-19 21:22 | disposition home or self-care (01) ==
LOC: ERS 18:31
DX: J06.9 Acute upper respiratory infection, unspecified (principal); M06.9 Rheumatoid arthritis, unspecified; F17.210 Nicotine dependence, cigarettes, uncomplicated; Z71.6 Tobacco abuse counseling
CPT/HCPCS: 71046; 80053; 85025; 94640; 94760; 96361; 96374; 99406; J2270; J7620; J8540; Q0162

== ENCOUNTER 2017-11-11 16:08 | Emergency (ER) | payer BC | END 2017-11-11 18:08 | disposition left against medical advice (07) | LOC: ERS 16:08 | DX: Z53.21 Procedure and treatment not carried out due to patient leaving prior to being seen by health care provider (principal) ==

== ENCOUNTER 2018-08-11 22:04 | Emergency (ER) | payer BC, SELFPAY ==
[~2018-08-11 22:04] MED LIST: ISOVUE-370 76%-LOCM 1 ML ONE
[2018-08-11] MEDS ORDERED: Morphine 4 MG/ML VIAL ONE (22:53)
[2018-08-11 23:12] LABS: Actual Bicarbonate (HCO3a) 31.6 mEq/L (22-28); Analyzer IN Cardio ER; Base Excess (BEa) 7.4 mEq/L (-2.0 to +3.0); CO2 Tension 42.4 mmHg (35.0-45.0); Calcium, Ionized 1.17 mmol/L (1.12-1.30); Carboxyhemoglobin (COHb) 4.9 gm% (0.0-3.0); Potassium - ABG Lab 3.28 mmol/L (3.70-5.30); pH, Arterial 7.49 (7.35-7.45)
[2018-08-11 23:17] LABS: O2 Tension (PaO2) 41.2 mmHg (80.0-100.0)
[2018-08-11 23:19] LABS: Puncture Site RRA
[2018-08-11 23:27] LABS: Band 1 % (5-11); Lymphocytes 36 % (21-51); MDiff Complete? YES; Mean Corpuscular HGB CONC 32.4 g/dL (32.0-36.0); Mean Corpuscular Hemoglobin 30.2 pg (27.0-31.0); Mean Corpuscular Volume 93.4 fL (78.0-98.0); Mean Platelet Volume 6.8 fL (7.4-10.4); Metamyelocyte 3 % (0-0); Monocytes 6 % (0-10); Myelocyte 2 % (0-0); Neutrophil 52 % (42-75); Nucleated RBC 1 % (0); Platelet Count 445 thou/uL (130-400); Platelet Morphology Comment Appears Increased; Red Blood Cell (RBC) Count 4.62 mill/uL (4.20-5.40); White Blood Cell (WBC) Count 14.5 thou/uL (4.8-10.8)
[2018-08-11 23:33] LABS: ALT (SGPT) 32 U/L (8-55); AST (SGOT) 19 U/L (5-34); Albumin 3.8 g/dL (3.5-5.0); Alkaline Phosphatase 74 U/L (40-150); Anion Gap 14 mmol/L (10-20); BUN (Urea Nitrogen) 8 mg/dL (7.0-18.7); Bilirubin, Total 0.2 mg/dL (0.2-1.2); CK (CPK) 30 U/L (29-168); Calc. Creatinine Clearance 0 mL/min (70-130); Calcium 9.3 mg/dL (7.8-10.44); Carbon Dioxide 32 mmol/L (22-29); Chloride 100 mmol/L (98-107); Estimated GFR-MDRD 88; Globulin 2.7 g/dL (2.4-3.5); Glucose 85 mg/dL (70-105); Potassium 3.6 mmol/L (3.5-5.1); Protein, Total 6.5 g/dL (6.0-8.3); Sodium 142 mmol/L (136-145)
[2018-08-12] MEDS ORDERED: Morphine 4 MG/ML VIAL ONE (01:18)
--- NOTE | 2018-08-12 08:42 | RAD ---
PORTABLE AP CHEST RADIOGRAPH: Date: 08-11-18 History: Chest pain Comparison: 08-05-18 FINDINGS: Cardiac silhouette and pulmonary vasculature are within normal limits. The lungs are clear. There has been interval resolution of the interstitial opacities throughout the lungs noted bilaterally on the prior exam. The lungs do appear clear on today's exam. No pleural effusion is seen. No other interva l change. IMPRESSION: 1. No acute cardiopulmonary process. 2. Resolution of bilateral interstitial opacities noted on the prior exam. POS: [facility]
--- NOTE | 2018-08-12 09:18 | CT ---
PRELIMINARY REPORT/[facility]/EMERGENTY AFTER-HOURS PROCEDURE CT Angiography Chest With Contrast EXAM DATE/TIME: 08/12/2018 12:20 AM CLINICAL HISTORY: 42 years old, female; Pain; Chest pain; Patient HX: Er 7; Elevated d-dimer; 42 y/o f presents to ed C /O cp, with worsening tonight. Pain quality described as tightness. She was recently dx with pna. TECHNIQUE: Axial computed tomographic angiography images of the chest with intravenous contrast using CT angiogr aphy protocol. MIP reconstructed images were created and reviewed. COMPARISON: No relevant prior studies available. FINDINGS: Pulmonary arteries: No visible acute pulmonary embolism. Aorta: No aortic dissection. Lungs: There is mild bibasilar atelectatic change or scarring. There is slight mosaic attenuation in the lungs suspicious for mild small airways disease. There may be subtle interstitial opacity in the bilateral lungs, cannot exclude mild interstitial pneumonitis or pulmonary edema. Pleural space: Normal. No pneumothorax. No pleural effusion. Heart: Normal. No cardiomegaly. No pericardial effusion. Lymph nodes: Unremarkable. No enlarged lymph nodes. Bones/joints: Unremarkable. No acute fracture. Soft tissues: Unremarkable. IMPRESSION: 1. No visible acute pulmonary embolism. 2. No aortic dissection. 3. There is slight mosaic attenuation in the lungs suspicious for mild small airways disease. There m ay be subtle interstitial opacity in the bilateral lungs, cannot exclude mild interstitial pneumoniti s or pulmonary edema. Thank you for allowing us to participate in the care of your patient. Dictated and Authenticated by: Bon Gates MD 08/12/2018 1:25 AM Central Time ([place] & [place]) FINAL REPORT CT ANGIGORAM CHEST WITH CONTRAST: Date: 08/11/18 HISTORY: Chest pain. Chest tightness. COMPARISON: Chest radiograph prior day. TECHNIQUE: CT angiogram chest performed after the intravenous administration of contrast. 3D rendering provided. FINDINGS/IMPRESSION: Findings and impression are concordant with the preliminary report by Isabel. POS: [facility]
--- NOTE | 2018-08-16 13:45 | EKG ---
Test Reason : CP Blood Pressure : / mmHG Vent. Rate : 092 BPM Atrial Rate : 092 BPM P-R Int : 120 ms QRS Dur : 080 ms QT Int : 368 ms P-R-T Axes : 048 000 -16 degrees QTc Int : 455 ms Normal sinus rhythm Possible Left atrial enlargement Left ventricular hypertrophy Abnormal ECG Confirmed by NORMA MURILLO, GRUPO ([id number]), editorial assistant KING FITZPATRICK ([id number]) on 08/16/2018 1:44:57 PM Referred By: Confirmed By:GRUPO GREEN MD
== END 2018-08-12 02:46 | disposition home or self-care (01) ==
LOC: ERS 22:04
DX: J18.9 Pneumonia, unspecified organism (principal); M06.9 Rheumatoid arthritis, unspecified; F17.210 Nicotine dependence, cigarettes, uncomplicated; Z79.899 Other long term (current) drug therapy
CPT/HCPCS: 36415; 71045; 71275; 80053; 82550; 82805; 84484; 85025; 85379; 87804; 93005; 94760; 96361; 96374; 96376; J2270; Q9966

== ENCOUNTER 2018-09-21 21:54 | Emergency (ER) | payer SELFPAY ==
--- NOTE | 2018-09-21 22:34 | RAD ---
AP VIEW CHEST: 09/21/18 HISTORY: Chest pain. AP view chest is obtained on 09/21/18. COMPARISON: Comparison made to previous exam from 08/11/18. AP view chest demonstrates the lungs to be well aerated. No evidence of active intrathoracic disease seen. No evidence of effusions, pneumonia or pneumothorax seen. IMPRESSION: Unremarkable AP view chest. POS: [facility]
[2018-09-21 22:59] LABS: #Eosinphils 0.1 thou/uL (0.0-0.7); #Lymphocytes 2.3 thou/uL (1.20-3.40); #Monocytes 0.9 thou/uL (0.11-0.59); #Neutrophils 8.9 thou/uL (1.40-6.50); %Eosinophils 0.6 % (0.0-10.0); %Neutrophils 73.4 % (42.0-75.0); Hemoglobin 12.7 g/dL (12.0-16.0); Mean Corpuscular HGB CONC 33.3 g/dL (32.0-36.0); Mean Corpuscular Hemoglobin 31.3 pg (27.0-31.0); Mean Platelet Volume 6.6 fL (7.4-10.4); Platelet Count 348 thou/uL (130-400); Red Blood Cell (RBC) Count 4.07 mill/uL (4.20-5.40); White Blood Cell (WBC) Count 12.2 thou/uL (4.8-10.8)
[2018-09-21] MEDS ORDERED: Morphine 4 MG/ML VIAL ONE (23:11)
[2018-09-21 23:23] LABS: ALT (SGPT) 15 U/L (8-55); AST (SGOT) 16 U/L (5-34); Albumin 3.5 g/dL (3.5-5.0); Alkaline Phosphatase 63 U/L (40-150); Anion Gap 11 mmol/L (10-20); BUN (Urea Nitrogen) 5 mg/dL (7.0-18.7); Bilirubin, Total 0.2 mg/dL (0.2-1.2); CK (CPK) 26 U/L (29-168); Calc. Creatinine Clearance 0 mL/min (70-130); Calcium 9.2 mg/dL (7.8-10.44); Carbon Dioxide 27 mmol/L (22-29); Chloride 108 mmol/L (98-107); Estimated GFR-MDRD Greater than 90; Globulin 2.7 g/dL (2.4-3.5); Glucose 120 mg/dL (70-105); Lipase 12 U/L (8-78); Potassium 3.4 mmol/L (3.5-5.1); Protein, Total 6.2 g/dL (6.0-8.3); Sodium 143 mmol/L (136-145)
== END 2018-09-22 00:10 | disposition home or self-care (01) ==
LOC: ERS 21:54
DX: M54.5 Low back pain (principal); R07.9 Chest pain, unspecified; F17.210 Nicotine dependence, cigarettes, uncomplicated; Z79.899 Other long term (current) drug therapy; Z79.51 Long term (current) use of inhaled steroids
CPT/HCPCS: 36415; 71045; 80053; 82550; 83690; 84484; 85025; 93005; 96372; J2270

== ENCOUNTER 2018-10-15 11:49 | Emergency (ER) | payer SELFPAY ==
[2018-10-15 12:18] LABS: #Eosinphils 0.1 thou/uL (0.0-0.7); #Lymphocytes 2.2 thou/uL (1.20-3.40); #Monocytes 0.7 thou/uL (0.11-0.59); %Basophils 0.5 % (0.0-1.0); %Eosinophils 1.4 % (0.0-10.0); %Monocytes 6.5 % (0.0-10.0); %Neutrophils 69.6 % (42.0-75.0); Mean Corpuscular HGB CONC 34.1 g/dL (32.0-36.0); Mean Corpuscular Hemoglobin 31.5 pg (27.0-31.0); Mean Corpuscular Volume 92.4 fL (78.0-98.0); Platelet Count 350 thou/uL (130-400); RBC Distribution Width 14.4 % (11.5-14.5); Red Blood Cell (RBC) Count 4.76 mill/uL (4.20-5.40)
[2018-10-15 12:45] LABS: ALT (SGPT) 16 U/L (8-55); AST (SGOT) 25 U/L (5-34); Albumin 4.3 g/dL (3.5-5.0); Alkaline Phosphatase 71 U/L (40-150); Anion Gap 18 mmol/L (10-20); BUN (Urea Nitrogen) 7 mg/dL (7.0-18.7); Bilirubin, Total 0.8 mg/dL (0.2-1.2); CK (CPK) 62 U/L (29-168); Calc. Creatinine Clearance 0 mL/min (70-130); Calcium 9.8 mg/dL (7.8-10.44); Carbon Dioxide 19 mmol/L (22-29); Chloride 107 mmol/L (98-107); Estimated GFR-MDRD Greater than 90; Glucose 96 mg/dL (70-105); Lipase 36 U/L (8-78); Potassium 3.9 mmol/L (3.5-5.1); Protein, Total 7.3 g/dL (6.0-8.3); Sodium 140 mmol/L (136-145)
--- NOTE | 2018-10-15 13:11 | RAD ---
CHEST 1 VIEW: Date: 10/15/18 Time: 1215 hours HISTORY: Chest pain. FINDINGS: Comparison made with exam of 09/21/18. The heart size is normal. The lungs are expanded without focal areas of consolidation, pneumothoraces , or pleural effusions. IMPRESSION: No radiographic evidence of acute cardiopulmonary process. POS: [facility]
[2018-10-15] MEDS ORDERED: Dexamethasone 10 MG/ML VIAL ONE (14:50)
[2018-10-15] MEDS ORDERED: Gabapentin 100 MG CAP PO SCH (15:30)
== END 2018-10-15 15:37 | disposition home or self-care (01) ==
LOC: ERS 11:49
DX: R07.89 Other chest pain (principal); M32.9 Systemic lupus erythematosus, unspecified; F17.210 Nicotine dependence, cigarettes, uncomplicated
CPT/HCPCS: 36415; 71045; 80053; 82550; 83690; 84484; 85025; 93005; 94760; 96372; J1100

== ENCOUNTER 2018-12-07 16:12 | Inpatient (IN) | payer SELFPAY ==
[2018-12-07] MEDS ORDERED: Acetaminophen 325 MG TAB ONE (17:58)
--- NOTE | 2018-12-07 18:10 | RAD ---
EXAM: Chest PA and lateral: HISTORY: Cough. Fever. Chest pain. COMPARISON: 07/07/2018 FINDINGS: Heart: Cardiomegaly. Aorta: Unremarkable Pulmonary vessels: Prominent pulmonary vessels Costophrenic angles: Costophrenic angles are clear. Lungs: Diffuse interstitial and alveolar opacities suggesting edema or infiltrate upon chronic change . Pneumothorax: No pneumothorax Osseous structures: No osseous abnormalities IMPRESSION: 1. Congestive heart failure.
[2018-12-07 18:29] LABS: #Eosinphils 0.2 thou/uL (0.0-0.7); #Lymphocytes 1.7 thou/uL (1.20-3.40); #Monocytes 0.6 thou/uL (0.11-0.59); %Basophils 0.1 % (0.0-1.0); %Eosinophils 1.9 % (0.0-10.0); %Lymphocytes 14.5 % (21.0-51.0); %Monocytes 5.2 % (0.0-10.0); %Neutrophils 78.2 % (42.0-75.0); Hemoglobin 13.2 g/dL (12.0-16.0); Mean Corpuscular HGB CONC 34.6 g/dL (32.0-36.0); Mean Corpuscular Hemoglobin 32.2 pg (27.0-31.0); Mean Corpuscular Volume 93.1 fL (78.0-98.0); Mean Platelet Volume 7.3 fL (7.4-10.4); Platelet Count 287 thou/uL (130-400); RBC Distribution Width 14.1 % (11.5-14.5); White Blood Cell (WBC) Count 11.5 thou/uL (4.8-10.8)
[2018-12-07 18:51] LABS: ALT (SGPT) 15 U/L (8-55); AST (SGOT) 25 U/L (5-34); Albumin 3.8 g/dL (3.5-5.0); Alkaline Phosphatase 67 U/L (40-150); Anion Gap 15 mmol/L (10-20); BUN (Urea Nitrogen) 7 mg/dL (7.0-18.7); Bilirubin, Total 0.4 mg/dL (0.2-1.2); Calc. Creatinine Clearance 0 mL/min (70-130); Calcium 9.4 mg/dL (7.8-10.44); Carbon Dioxide 24 mmol/L (22-29); Chloride 103 mmol/L (98-107); Estimated GFR-MDRD Greater than 90; Globulin 2.4 g/dL (2.4-3.5); Glucose 99 mg/dL (70-105); Potassium 3.2 mmol/L (3.5-5.1); Protein, Total 6.2 g/dL (6.0-8.3); Sodium 139 mmol/L (136-145)
[2018-12-07 19:22] LABS: Bacteria/HPF 1+ HPF (None Seen); Bilirubin Negative (Negative); Blood, Urine 1+ (Negative); Clarity Clear (Clear); Glucose, Urine (Dipstick) Normal (Negative); Leukocyte Negative Leu/uL (Negative); Nitrite Negative (Negative); Protein, Urine (Dipstick) Negative (Neg-Trace); Squamous Epithelial 0-3 HPF (0-3); Urobilinogen Normal mg/dL (Less than 2); WBC/HPF 0-3 HPF (0-3)
[2018-12-07 19:24] LABS: Pregnancy Test - Urine (BHCG) Negative (Negative); Pregu Control Background? CLEAR/WHITE (CLR/WHITE); Pregu Control Bar Appear? YES (CONTROL BAR); Specific Gravity 1.006 (1.002-1.036)
--- NOTE | 2018-12-07 20:25 | CT ---
CT ANGIOGRAM THORAX WITH CONTRAST: (CTA pulmonary angiogram) DATE: 12/07/2018 HISTORY: 43-year-old female with fever, cough, and pleuritic chest pain. TECHNIQUE: IV injection of iodinated contrast. Scan acquisition timing attempted to coincide with iodinated contrast bolus reaching maximal density in pulmonary arteries. 3-D MIP reconstructions. FINDINGS: The previously described diffuse bilateral groundglass pulmonary densities have worsened diffusely. Furthermore, there is a new finding of multifocal bilateral predominantly upper lobe, but also some l ower lobe alveolar infiltrates, very extensive in the upper lobes. No thoracic aortic aneurysm or dissection. Borderline or mild cardiomegaly. No pleural effusion or pneumothorax. The superior portio n of hyperdensity at left renal upper pole calyx may represent a calculus, incompletely imaged. The IV infiltrated, resulting in only 25 mL of contrast media entering the patient's bloodstream. This re sults in suboptimal opacification of the peripheral branches of the bilateral pulmonary arteries. There is no pulmonary thromboembolism in the pulmonic trunk, left and right main pulmonary arteries, or the first order branches. Several mildly enlarged mediastinal lymph nodes. IMPRESSION: 1) large number of bilateral upper lobe infiltrates (and to a lesser degree lower lobe). Given histor y of fever and cough, this is consistent with significant bilateral pneumonia. 2) no central pulmonary thromboembolism. 3) interval worsening of groundglass densities throughout the lungs consistent with worsening of pulm onary interstitial edema.
[2018-12-07] MEDS ORDERED: Morphine 4 MG/ML VIAL ONE (21:30)
[2018-12-07] MEDS ORDERED: Potassium Chloride 20 MEQ TAB ONE (21:31)
[2018-12-07] MEDS ORDERED: Azithromycin 500 MG VIAL ONE (21:31)
[2018-12-07] MEDS ORDERED: Cefepime 2 GM VIAL ONE (22:20)
[2018-12-07] MEDS ORDERED: Acetaminophen 325 MG TAB PO PRN ×2 (22:48→23:24)
[2018-12-07 22:52] LABS: Troponin I Less than 0.010 ng/mL (< 0.028)
[2018-12-07 23:08] VITALS: BMI 37.8
[2018-12-07] MEDS ORDERED: Senokot S 8.6-50 MG TAB PO PRN (23:24)
[2018-12-07] MEDS ORDERED: Benzonatate 100 MG CAP PO PRN (23:24)
[2018-12-07] MEDS ORDERED: Ondansetron PF 4 MG/2 ML Vial IVP PRN (23:24)
[2018-12-07] MEDS ORDERED: Bisacodyl 10 MG SUPP PR PRN (23:24)
[2018-12-07] MEDS ORDERED: Guaifenesin DM 100-10/5 ML UDCUP PO PRN (23:24)
[2018-12-07] MEDS ORDERED: Fiorinal 325/50/40 mg Tablet PO PRN (23:24)
[2018-12-07 23:36] LABS: Amphetamine Not Detected (NotDetected); Barbiturates Screen Not Detected (NotDetected); Benzodiazepine Screen Not Detected (NotDetected); Cocaine Metabolite Screen Not Detected (NotDetected); Medtox Control Line Valid? VALID (VALID); Medtox Reader # READER 4; Methadone Not Detected (NotDetected); Methamphetamine Not Detected (NotDetected); Opiate Screen Detected (NotDetected); Oxycodone Screen Not Detected (NotDetected); Phencyclidine (PCP) Not Detected (NotDetected); THC/Cannabinoid Screen Not Detected (NotDetected); Tricyclic Screen Not Detected (NotDetected)
[2018-12-07] MEDS: Sodium Chloride 0.9% 1,000 ML IV SCH (23:56)
[2018-12-07] MEDS: HYDROcodone/Acetaminophen 10/325 mg Tablet PO PRN (23:57)
[2018-12-07] MEDS ORDERED: methylPREDNISolone Sod Succ/PF 125 MG/2 ML VIAL IVP SCH (23:59)
[2018-12-07] MEDS ORDERED: Levofloxacin 750 mg/D5W 500 MG in Premix Bag 1 BAG IVPB SCH (23:59)
[2018-12-08 00:25] LABS: Acetaminophen Less than 6.0 mcg/mL (10.0-30.0); Alcohol Less than 10 mg/dL (Less than 10); Salicylate Less than 8.0 mg/dL (15.0-30.0)
[2018-12-08 00:56] LABS: HBCM Index 0.06 S/CO (0-0.79); HBSAg Index 0.27 S/CO (0-0.99); HIV (1/2) Antibody/Antigen Non-Reactive (NonReactive); Hep A IgM AB Non-Reactive (NonReactive); Hep A IgM S/CO 0.11 S/CO (0-0.79); Hep B Surf Ag Non-Reactive S/CO (NonReactive); Hep C IgG Ab Non-Reactive (NonReactive); Hep C Index 0.12 S/CO (0-0.79); Hepatitis B Core IgM Abs Non-Reactive (NonReactive)
--- NOTE | 2018-12-08 01:36 | HP ---
REASON FOR ADMISSION: Sepsis, pneumonia, immunosuppressed. HISTORY OF PRESENTING ILLNESS: The patient gives history of having fever of 102 last night and was confused per patient. She had her whole body hurting. Has cough, but no altered sputum. No complaints of palpitations or PND. The patient has shortness of breath. She has known history of lupus/rheumatoid arthritis and is on prednisone 10 mg daily for the last 5 months or so now along with Plaquenil. No complaints of prior pneumonia or history of asthma or COPD. The patient states she has known history of interstitial lung disease likely related to rheumatoid arthritis per patient. She follows up with Dr. Ponce for Rheumatology. PAST MEDICAL AND SURGICAL HISTORY: History of lupus, history of rheumatoid arthritis, history of seizure disorder, chronic interstitial lung disease related to either lupus or rheumatoid arthritis, one time history of CHF but the patient does not recall the exact ejection fraction, tubal ligation, x3. CURRENT MEDICATIONS: The patient is on: 1. Depakote 750 mg p.o. at bedtime. 2. fioricet p.r.n. for headaches. 3. Crosby p.r.n. for pain. 4. Plaquenil 200 mg twice daily. 5. Prednisone 10 mg daily. ALLERGIES: THE PATIENT HAS MULTIPLE ALLERGIES INCLUDING NSAIDS, PENICILLIN, LEVAQUIN, AND ULTRAM. PERSONAL HISTORY: Smokes half pack a day. Does not abuse alcohol or drugs. Lives with her . Has 3 children. FAMILY HISTORY: Both parents are living. Mother has history of lupus and diabetes. Father has history of coronary artery disease and diabetes. Has a brother who has history of rheumatoid arthritis. CODE STATUS: Full. Power of estate planning attorney is her . REVIEW OF SYSTEMS: CONSTITUTIONAL: Negative for weight loss or gain, ability to conduct usual activities. SKIN: Negative for rash, itching. EYES: Negative for double vision, pain. ENT/MOUTH: Negative for nose bleeding, neck stiffness, pain, tenderness. CARDIOVASCULAR: Negative for palpitations, dyspnea on exertion, orthopnea. RESPIRATORY: Negative for shortness of breath, wheezing, cough, hemoptysis, fever or night sweats. GASTROINTESTINAL: Negative for poor appetite, abdominal pain, heartburn, nausea , vomiting, constipation, or diarrhea. GENITOURINARY: Negative for urgency, frequency, dysuria, nocturia. MUSCULOSKELETAL: Negative for pain, swelling. NEUROLOGIC/PSYCHIATRIC: Negative for anxiety, depression. ALLERGY/IMMUNOLOGIC: Negative for skin rash, bleeding tendency. PHYSICAL EXAMINATION: GENERAL: The patient is a 43-year-old female who is currently having generalized body aches. VITAL SIGNS: Blood pressure 128/78, pulse 100 per minute, respiratory rate 18 per minute, temperature on arrival was 101.4 degrees Fahrenheit, and saturating 95% on room air. NECK: Supple. No elevated JVD. HEENT: Eyes; extraocular muscles intact. Pupils reacting to light. Oral cavity, mucous membranes are dry. No exudates or congestion. CARDIOVASCULAR: S1 and S2 heard. Regular rhythm. RESPIRATORY: 1+ bilateral. The patient has coarse rales and rhonchi bilateral. ABDOMEN: Soft. Bowel sounds heard. No tenderness, rigidity, or guarding. EXTREMITIES: No peripheral edema, but the patient has eczematous changes in the right forearm, bilateral ankles, left half of her face. Says this could be vasculitis that her motor racer is evaluating. No gangrene seen. Peripheral pulses are 1+ bilateral. CENTRAL NERVOUS SYSTEM: No gross focal deficits noted. The patient is alert, awake, and oriented well. PSYCHIATRIC: The patient's mood is euthymic. No hallucinations or delusions. LABORATORY DATA: White count of 11, H and H 13 and 38, platelet count 287 with 78% neutrophils, MCV is 93. D-dimer was 0.5. Potassium 3.2, BUN 7, creatinine 0.6, serum glucose 99. Lactic acid 1.3. Liver enzymes are within normal limits. Troponin x2 is negative. LDH is elevated at 351. BNP is 22. Albumin is 3.8. Urine test is negative. Urine drug screen is positive for opiates, likely iatrogenic given in the ER. Plasma alcohol less than 10. EKG, sinus tach at 110 beats per minute. There are signs of LVH. There are nonspecific ST-T wave changes. Corrected QT is 498 milliseconds and QRS duration is [address] angio chest done shows bilateral upper lobe infiltrate consistent with pneumonia. No evidence of PE. Interval worsening of ground-glass densities throughout lungs consistent with pulmonary interstitial edema. CLINICAL IMPRESSION AND PLAN: The patient will be admitted to medical floor for pneumonia, possible flare up of interstitial lung disease with history of rheumatoid arthritis and lupus, immunosuppressed patient. Blood cultures and sputum cultures will be obtained. The patient will be on cefepime and Zithromax. She has allergies to penicillin and Levaquin. Solu-Medrol 40 mg IV q.6 hourly, DuoNeb q.6 hourly. We will continue her Plaquenil, Depakote, Crosby as before. We will obtain consultation with Dr. Lai, her lead java developer architect during her stay here. Acute hepatitis panel, HIV test, cryoglobulins, LASHON with reflex are all pending at present. The patient has no serologic evidence of either rheumatoid arthritis or lupus in our system. Likely the patient has had all the workups done at [facility]. We will continue to closely monitor her on medical floor. The patient is full code and power of estate planning attorney is her . Please note I have seen and examined patient on 2018. Job ID: [id number] MTDD
[2018-12-08 04:52] LABS: #Lymphocytes 0.6 thou/uL (1.20-3.40); #Monocytes 0.1 thou/uL (0.11-0.59); #Neutrophils 6.5 thou/uL (1.40-6.50); %Eosinophils 0.3 % (0.0-10.0); %Lymphocytes 8.1 % (21.0-51.0); %Monocytes 1.7 % (0.0-10.0); %Neutrophils 89.9 % (42.0-75.0); Hemoglobin 12.2 g/dL (12.0-16.0); Mean Corpuscular HGB CONC 34.2 g/dL (32.0-36.0); Mean Corpuscular Hemoglobin 32.1 pg (27.0-31.0); Mean Corpuscular Volume 93.7 fL (78.0-98.0); Mean Platelet Volume 7.7 fL (7.4-10.4); Platelet Count 252 thou/uL (130-400); RBC Distribution Width 13.9 % (11.5-14.5); Red Blood Cell (RBC) Count 3.81 mill/uL (4.20-5.40); White Blood Cell (WBC) Count 7.2 thou/uL (4.8-10.8)
[2018-12-08] MEDS: HYDROcodone/Acetaminophen 10/325 mg Tablet PO PRN ×5 (05:05→21:58)
[2018-12-08 05:14] LABS: Anion Gap 13 mmol/L (10-20); BUN (Urea Nitrogen) 5 mg/dL (7.0-18.7); Calc. Creatinine Clearance 159 mL/min (70-130); Calcium 8.9 mg/dL (7.8-10.44); Carbon Dioxide 24 mmol/L (22-29); Chloride 105 mmol/L (98-107); Estimated GFR-MDRD Greater than 90; Glucose 137 mg/dL (70-105); Potassium 3.5 mmol/L (3.5-5.1); Sodium 138 mmol/L (136-145)
[2018-12-08] MEDS ORDERED: methylPREDNISolone Sod Succ 40 MG VIAL IVP SCH ×2 (06:00→11:04)
[2018-12-08] MEDS: Famotidine 20 MG TAB PO SCH ×2 (08:25→20:51)
[2018-12-08] MEDS: Enoxaparin Sodium 40 MG/0.4 ML SYRINGE SC SCH (08:26)
[2018-12-08] MEDS: guaiFENesin ER 600 MG TAB PO SCH ×2 (08:26→20:49)
[2018-12-08] MEDS: Hydroxychloroquine Sulfate 200 MG TAB PO SCH ×2 (08:31→21:22)
[2018-12-08] MEDS: Cefepime 2 GM in Sodium Chloride 0.9% 100 ML IVPB SCH ×2 (10:03→23:44)
[2018-12-08] MEDS: methylPREDNISolone Sod Succ/PF 125 MG/2 ML VIAL IVP SCH ×3 (12:59→23:43)
--- NOTE | 2018-12-08 13:20 | CON ---
DATE OF CONSULTATION: 12/08/2018 CONSULTING PHYSICIAN: Rell Elam. REASON FOR CONSULTATION: Pneumonia. HISTORY OF PRESENT ILLNESS: The patient is a 43-year-old female, who has been sick for the last 2 days. On Saturday evening, she ran a fever of 102. Saturday, she tried to suppress the fever with Tylenol and Advil. She had a family member from out of town that was visiting so she did not want to come the hospital. Last night she came in with body aches, flu-like symptoms and a cough. She has also had an increasing maculopapular rash over her arms and face. She has been experiencing greater pains in the right shoulder. She has also been experiencing pustular sores in her mouth. She sees Dr. Ponce at [facility], but it is not clear to me how often she really follows up with him. It sounds like she intermittently titrates her prednisone up and down as needed. She also is taking Plaquenil. PAST MEDICAL HISTORY: 1. Previous pneumonia. 2. Lupus. 3. Rheumatoid arthritis. 4. Seizure disorder. 5. Possible chronic interstitial lung disease. ALLERGIES: PENICILLIN, LEVAQUIN, AND ULTRAM. MEDICATIONS: Prior to admission, 1. Depakote. 2. [place]. 3. Plaquenil. 4. Prednisone. SOCIAL HISTORY: She is half pack per day smoker. Does not use any illicit drugs. Does not currently work. Lives at home with her . FAMILY MEDICAL HISTORY: Remarkable for lupus and diabetes in her mother, coronary artery disease and diabetes in her father. She has a brother with RA. REVIEW OF SYSTEMS: She has had a rash. She has had subjective fever. She has had joint pain in the right shoulder. She has had mouth sores. She has had occasional shortness of breath. She has had no hemoptysis, melena, hematochezia, hematuria, dysuria. Remainder of 12-point review of systems is negative. PHYSICAL EXAMINATION: VITAL SIGNS: Temperature , pulse 69, respirations 16, O2 saturation 95% on room air, blood pressure 98/53. GENERAL: She has a fairly obvious discoid rash present over the left side of her face and her right arm. She has similar changes over her left ankle and over her stomach. HEENT: Pupils reactive. Sclerae anicteric. Oropharynx, she has herpetic/pustular regions over the inside of her oral mucous membranes. NECK: No adenopathy or JVD. LUNGS: She has crackles best heard posteriorly in the apices. CARDIAC: S1, S2. Regular. ABDOMEN: Soft, obese, nontender. 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 EXTREMITIES: No clubbing, cyanosis, or edema. NEUROLOGIC: Grossly intact. LABORATORY DATA: White blood cell count 7.2, hematocrit 35.7, and platelet count 252. D-dimer 0.52. Sodium 138, potassium 3.5, chloride 105, CO2 of 24, BUN 5, creatinine 0.7, glucose 137, LDH 351. Urinalysis showed 1+ blood, 4 to 6 red blood cells. Her LASHON and rheumatoid factor titers have not returned. IMAGING STUDIES: I reviewed her CT of the chest as well as several previous CTs of the chest. She has a significant amount of nodular changes in the apices. These were not present on the CT scan in August, but were present back in July. ASSESSMENT: 1. I think most likely we are looking in a situation, where this lady has uncontrolled lupus/rheumatoid arthritis and is experiencing vasculitis from that. Pneumonia is not out of the realm of possibility, but the rash, oral mucous membrane changes, and a CT scan are extremely suspicious for vasculitis. 2. Tobacco abuse. RECOMMENDATIONS: 1. I would recommend rheumatologic consultation for consideration of high-dose immunosuppression. 2. Await LASHON and rheumatoid factor titers. 3. Smoking cessation has been advised. 4. I think it would be logical to continue antibiotics for the time being. Thank you for the referral. Job ID: [id number]
[2018-12-08 14:35] LABS: Complement-C4 26.3 mg/dL (15-57)
[2018-12-08] MEDS ORDERED: Polyethylene Glycol 3350 17 GM Packet PO PRN (15:38)
--- NOTE | 2018-12-08 16:15 | PRG ---
DATE OF SERVICE: 12/08/2018 SUBJECTIVE: The patient is a 43-year-old female with rheumatoid arthritis and systemic lupus erythematosus, presented to the hospital yesterday with fever of 102 along with shortness of breath and cough. She is currently on Plaquenil and 10 mg prednisone on a daily basis. The last time she saw her boilermaker fitter, Dr. Ponce at [facility] was approximately 6 months ago. Her shortness of breath has gradually improved. She continues to have dry cough. She denies any fever at this time. No chest pain or palpitations reported. EKG by my review showed sinus tachycardia. OBJECTIVE: VITAL SIGNS: Temperature 98.6, pulse rate of 69, respirations 16, blood pressure of 124/59, O2 saturation 94% on room air. GENERAL: A 43-year-old female sitting on the side of the bed without significant respiratory distress. NECK: Supple. No JVD. No carotid bruit. LUNGS: Show bilateral rales with scattered rhonchi. No wheezing. No significant accessory muscle use. HEART: S1 and S2 present. Regular rate and rhythm. No rubs or gallops. ABDOMEN: Soft, nontender. Bowel sounds present. NEUROLOGIC: Grossly nonfocal. SKIN: There is a chronic erythematous lesion in the right forearm with raised margins. PSYCHIATRY: Alert, awake, oriented x3. Normal affect. LABORATORY FINDINGS: WBC 7.2 from 11.5. Sodium 138, potassium 3.5, BUN 5, creatinine 0.69. Blood cultures negative. IMAGING DATA: Chest x-ray by my review showed volume overload with bilateral infiltrates. CT angiogram of the chest showed bilateral upper lobe infiltrates along with worsening of ground-glass densities throughout the lung. IMPRESSION: 1. Sepsis with acute organ dysfunction secondary to bilateral pneumonia, suspected atypical organism. 2. Bilateral ground-glass opacity of unclear etiology. 3. Rheumatoid arthritis/systemic lupus erythematosus with suspected lupus flare. 4. Seizure disorder. 5. Hypokalemia, replaced. 6. Chronic pain syndrome. 7. Obesity with a BMI of 37.8. 8. Tobacco dependence. PLAN: The patient will be monitored on the medical floor. We will continue cefepime with azithromycin. Steroid dose has been increased to 125 mg q.6 hourly. We will continue Mucinex along with other home medications. Lovenox for DVT prophylaxis. GI prophylaxis while on steroids. I discussed with Dr. Seals, rheumatology. She agrees with the current plan. We will check C3, C4. LASHON panel, cryoglobulin, and rheumatoid arthritis screen is pending at this time. We will recheck a.m. labs. Plan was discussed with the patient in detail and she stated understanding. Plan was discussed with relief manager, Dr. Mcclain. Job ID: [id number]
[2018-12-08] MEDS: Potassium Chloride 10 MEQ TAB PO SCH (17:45)
[2018-12-08] MEDS: Sodium Chloride 0.9% 1,000 ML IV SCH (20:47)
[2018-12-08] MEDS: Senokot S 8.6-50 MG TAB PO SCH (20:50)
[2018-12-08] MEDS ORDERED: Divalproex Sodium DR 500 MG TAB PO SCH (21:00)
[2018-12-08] MEDS: Divalproex Sodium 250 MG (DR) TAB PO SCH (21:21)
[2018-12-08] MEDS ORDERED: Azithromycin 500 MG in Sodium Chloride 0.9% 250 ML 250 ML IVPB SCH (22:00)
[2018-12-09] MEDS: methylPREDNISolone Sod Succ/PF 125 MG/2 ML VIAL IVP SCH ×3 (05:33→17:27)
[2018-12-09] MEDS: HYDROcodone/Acetaminophen 10/325 mg Tablet PO PRN ×5 (05:36→21:22)
[2018-12-09 05:58] LABS: #Lymphocytes 0.8 thou/uL (1.20-3.40); #Monocytes 0.3 thou/uL (0.11-0.59); #Neutrophils 8.9 thou/uL (1.40-6.50); %Eosinophils 0.1 % (0.0-10.0); %Monocytes 2.5 % (0.0-10.0); %Neutrophils 89.4 % (42.0-75.0); Hemoglobin 11.3 g/dL (12.0-16.0); Mean Corpuscular HGB CONC 32.7 g/dL (32.0-36.0); Mean Corpuscular Volume 94.9 fL (78.0-98.0); Mean Platelet Volume 7.5 fL (7.4-10.4); Platelet Count 299 thou/uL (130-400); RBC Distribution Width 14.1 % (11.5-14.5); Red Blood Cell (RBC) Count 3.63 mill/uL (4.20-5.40)
[2018-12-09 06:21] LABS: Anion Gap 15 mmol/L (10-20); BUN (Urea Nitrogen) 7 mg/dL (7.0-18.7); Calc. Creatinine Clearance 157 mL/min (70-130); Calcium 9.1 mg/dL (7.8-10.44); Carbon Dioxide 21 mmol/L (22-29); Chloride 109 mmol/L (98-107); Estimated GFR-MDRD Greater than 90; Glucose 166 mg/dL (70-105); Magnesium 1.9 mg/dL (1.6-2.6); Potassium 3.9 mmol/L (3.5-5.1); Sodium 141 mmol/L (136-145)
--- NOTE | 2018-12-09 07:52 | RAD ---
EXAM: Chest Two Views 12/09/2018 7:49 AM HISTORY: Shortness of breath COMPARISON: Prior exam dated December 07, 2018 FINDINGS: Heart: Mild cardiomegaly persists Pulmonary vessels: There is improvement of pulmonary vascular congestion Costophrenic angles: Clear. Lungs: There is improvement in the central edema pattern. Pneumothorax: None. Osseous structures:Intact. Additional findings: None. IMPRESSION: Improving CHF
[2018-12-09] MEDS: Potassium Chloride 10 MEQ TAB PO SCH ×2 (08:40→17:27)
[2018-12-09] MEDS: Enoxaparin Sodium 40 MG/0.4 ML SYRINGE SC SCH (08:40)
[2018-12-09] MEDS: guaiFENesin ER 600 MG TAB PO SCH ×2 (08:40→20:11)
[2018-12-09] MEDS: Famotidine 20 MG TAB PO SCH ×2 (08:40→21:22)
[2018-12-09] MEDS: Senokot S 8.6-50 MG TAB PO SCH (08:41)
[2018-12-09] MEDS: Hydroxychloroquine Sulfate 200 MG TAB PO SCH ×2 (09:36→20:11)
[2018-12-09] MEDS: Cefepime 2 GM in Sodium Chloride 0.9% 100 ML IVPB SCH (10:20)
[2018-12-09] MEDS ORDERED: Aquaphor 30 GM JAR TOP PRN (10:27)
[2018-12-09 12:26] LABS: ANA Symphony (Qualitative) Negative (Negative); ANA Symphony (Quantitative) Less than 0.1 Ratio (< 0.7 Negative); dsDNA IgG Antibody Less than 0.5 IU/mL (<10 Negative)
[2018-12-09 12:44] LABS: CCP IgG Antibody 0.7 EliAU/mL (<7 Negative); EliA RAS New Method **** NEW METHOD ****; Rheumatoid Factor IgM Antibody 3.4 IU/mL (<3.5 Negative)
[2018-12-09] MEDS: Fioricet 325/50/40 mg Tablet PO PRN ×2 (13:22→20:10)
--- NOTE | 2018-12-09 15:55 | PRG ---
DATE OF SERVICE: 12/09/2018 SUBJECTIVE: Cinda Mae said she started feeling better since she got steroids yesterday. 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 OBJECTIVE: VITAL SIGNS: She is afebrile. Heart rates in the 70s, respiratory rates in the teens, oximetry is 96% on room air, blood pressure 128/75. LUNGS: Clear. HEART: Regular rhythm. ABDOMEN: Soft. EXTREMITIES: Without asymmetry. IMAGING DATA: Chest x-ray surprisingly has improved compared to yesterday. LABORATORY DATA: Sodium 141, potassium 3.9, chloride 109, bicarb 21, BUN 7, and creatinine 0.7. Urinalysis showed red cells. White count 10, hemoglobin 11.3, platelets 299. Her rheumatoid factor, IgA was 3, IgM was 3.4. Her LASHON screen was negative. Her double-stranded DNA was negative. Complement level C3 was 154, C4 was 26. Her BNP was normal at 22. IMPRESSION: ? Pulmonary edema. Her serology does not suggest that this is autoimmune mediated at least by lupus or rheumatoid arthritis unless she has a mixed connective tissue disorder seronegative. The improvement of radiograph would argue for congestive heart failure, but this is extremely rare with a BNP of 22. She can be switched to p.o. antimicrobial therapy. The rapid clearing of her radiograph argues against this being a pneumonia as well, although the patchy upper lobe distribution on her CT could be consistent with an atypical pneumonia. Agree with current management. She says she plans to see her bakery demonstrator in the near future now that she has insurance that is accepted by [facility]. Job ID: [id number]
[2018-12-09] MEDS: Calcium Carbonate + Vit D 1 TAB PO SCH (17:27)
[2018-12-09] MEDS: Divalproex Sodium 250 MG (DR) TAB PO SCH (20:10)
--- NOTE | 2018-12-09 20:30 | PRG ---
DATE OF SERVICE: 12/09/2018 SUBJECTIVE: The patient is a 43-year-old white female with rheumatoid arthritis and systemic lupus erythematosus, on chronic steroids and Plaquenil; presented to the hospital with fever with cough and shortness of breath. She has been started on broad-spectrum antibiotics along with IV steroids. Symptomatically, the patient feels much better. Her shortness of breath is improving. She has mild cough. No fever reported. No chest pain or palpitations. REVIEW OF SYSTEMS: No nausea, vomiting, or joint pain reported. Her oral rash is improving as well. The rash on the forearm has significantly improved with IV steroids. All other review of systems was reviewed and was found negative. MEDICATIONS: Current medications were reviewed. The patient is on cefepime, azithromycin with IV steroids. OBJECTIVE: VITAL SIGNS: Temperature 98.4, pulse of 81, respirations of 16, blood pressure of 119/58, O2 saturation 98% on room air. GENERAL: A 43-year-old female, in no apparent distress at rest. HEENT: Head, atraumatic and normocephalic. Improvement in the oral ulcer. LUNGS: Showed scattered rhonchi. No significant rales or wheezing. HEART: S1 and S2 present. Regular. ABDOMEN: Soft. Nontender. EXTREMITIES: No edema or calf tenderness. SKIN: As discussed above. DIAGNOSTIC TESTS: Chest x-ray by my review showed significant improvement. LAB FINDINGS: WBC 10, hemoglobin 11.3, hematocrit 34.5, platelet of 299. Magnesium 1.9 with potassium 3.9. Hepatitis profile negative. HIV testing negative. Rheumatoid factor, CCP, LASHON screen, complement C3, C4 normal. Anti-double stranded DNA was negative. Blood culture, urine culture negative. IMPRESSION: 1. Sepsis with acute organ dysfunction secondary to bilateral pneumonia, suspected atypical organism. 2. Questionable lupus flare. 3. Questionable pulmonary edema. Echocardiogram is pending. 4. History of rheumatoid arthritis and systemic lupus erythematosus, on chronic steroids. 5. Seizure disorder. 6. Hypokalemia, corrected. 7. Chronic pain syndrome. 8. Tobacco dependence. 9. Obesity with a BMI of 37.8. PLAN: Antibiotics will be switched to oral per Pulmonary recommendation. We will continue steroids. We will update, Dr. Seals, Rheumatology, about the above findings. The patient was advised to ambulate. Lovenox for DVT prophylaxis. GI prophylaxis due to chronic steroids. Job ID: [id number]
[2018-12-10] MEDS: methylPREDNISolone Sod Succ/PF 125 MG/2 ML VIAL IVP SCH ×4 (00:27→16:54)
[2018-12-10] MEDS: HYDROcodone/Acetaminophen 10/325 mg Tablet PO PRN ×4 (01:46→15:46)
[2018-12-10] MEDS: Famotidine 20 MG TAB PO SCH (08:15)
[2018-12-10] MEDS: Calcium Carbonate + Vit D 1 TAB PO SCH ×2 (08:16→16:54)
[2018-12-10] MEDS: guaiFENesin ER 600 MG TAB PO SCH (08:16)
[2018-12-10] MEDS: Enoxaparin Sodium 40 MG/0.4 ML SYRINGE SC SCH (08:16)
[2018-12-10] MEDS: Hydroxychloroquine Sulfate 200 MG TAB PO SCH (08:16)
[2018-12-10] MEDS: Potassium Chloride 10 MEQ TAB PO SCH ×2 (08:16→16:54)
[2018-12-10 08:22] VITALS: BP 141/77; TEMP 97.7
[2018-12-10] MEDS ORDERED: Cefdinir 300 MG CAP PO SCH (09:00)
[2018-12-10] MEDS ORDERED: Azithromycin 250 MG TAB PO SCH (09:00)
[2018-12-10] MEDS: Fioricet 325/50/40 mg Tablet PO PRN (10:36)
--- NOTE | 2018-12-11 04:21 | DIS ---
DATE OF ADMISSION: 12/07/2018 DATE OF DISCHARGE: 12/10/2018 DISCHARGE DISPOSITION: Home. FOLLOWUP: 1. Follow up with primary care physician, Dr. Juan Manuel James in 1 week. 2. Follow up with primary bakery worker, Dr. Ponce in 1 week. 3. Follow up with Pulmonary, Dr. Ronny Lai as needed. 4. Repeat chest x-ray after 4 weeks is recommended. 5. Primary care physician advised to follow. ALLERGIES: THE PATIENT IS ALLERGIC TO NSAIDS, LEVAQUIN, TRAMADOL, AND PENICILLIN. INPATIENT GROUNDWATER CONSULTANT: Pulmonary, Dr. Lai. BRIEF HOSPITAL COURSE: The patient is a 43-year-old white female with rheumatoid arthritis and systemic lupus erythematosus on chronic steroids and Plaquenil, presented to the hospital with fever, cough, and shortness of breath. Her WBC count on admission was 11.5 with 78.2% neutrophils. ESR was 24. D-dimer was 0.52. For this reason, she had a CT angiogram of the chest in the emergency room that showed large number of bilateral upper lobe infiltrates along with interval worsening of ground-glass densities throughout the lung consistent with worsening pulmonary interstitial edema. She was monitored on telemetry unit. She was evaluated by Pulmonary, Dr. Mcclain. She was started on Solu-Medrol 40 mg IV six hourly that was increased to 125 mg IV six hourly by Dr. Mcclain. She was placed on cefepime and azithromycin as well. The patient significantly showed good improvement with above measures. Repeat chest x-ray done yesterday showed significant improvement of the pulmonary vascular congestion as well as the central edema pattern. It is unclear with the patient's CT findings were secondary to pulmonary edema. Echocardiogram showed ejection fraction 50% to 55% with trace mitral regurgitation, right ventricular size and function were normal. BNP on admission was normal at 22.9. The case was discussed with bakery worker, Dr. Seals. LASHON panel, rheumatoid factor, C3, and C4, they were all in normal range. C3 was 154, C4 was 26. Rheumatoid factor IgA was 3. Rheumatoid factor IgM was 3.4. LASHON screen was negative. Double-stranded DNA was less than 0.5. HIV negative. Hepatitis profile was negative. Urine drug screen was negative. She will be discharged home on oral antibiotics as well as steroid taper starting at 40 mg daily. The patient will reduce by 10 mg every week per Dr. Seals's recommendation. She will benefit from a repeat x-ray after 4 weeks. Plan was discussed with the patient in detail. She stated understanding. All other home medications were left unchanged. The patient was advised to resume prednisone 10 mg once she completes the prednisone taper. FINAL DIAGNOSES: 1. Sepsis with acute organ dysfunction secondary to bilateral pneumonia, questionable atypical organism. 2. Questionable pulmonary edema. Echocardiogram was normal and BNP was normal. 3. History of rheumatoid arthritis and systemic lupus erythematosus, on chronic steroids. 4. Hypokalemia, corrected. 5. Seizure disorder. 6. Chronic pain syndrome. 7. Tobacco dependence, the patient was counseled. 8. Obesity with a BMI of 37.8. Job ID: [id number]
== END 2018-12-10 17:50 | disposition home or self-care (01) | DRG 871 ==
LOC: ERS 16:12 → 2NO 21:00 → ONC 12-08 18:43
PROVIDERS: ADMIT Internal Medicine; ATTEND Internal Medicine
DX: A41.9 Sepsis, unspecified organism (principal); J18.9 Pneumonia, unspecified organism; J81.1 Chronic pulmonary edema; M32.9 Systemic lupus erythematosus, unspecified; R65.20 Severe sepsis without septic shock; F17.210 Nicotine dependence, cigarettes, uncomplicated; M06.9 Rheumatoid arthritis, unspecified; G40.909 Epilepsy, unspecified, not intractable, without status epilepticus; E87.6 Hypokalemia; E66.9 Obesity, unspecified; G89.4 Chronic pain syndrome; Z68.37 Body mass index [BMI] 37.0-37.9, adult; Z98.51 Tubal ligation status; Z88.1 Allergy status to other antibiotic agents; Z88.0 Allergy status to penicillin; Z88.2 Allergy status to sulfonamides; Z88.6 Allergy status to analgesic agent; Z79.52 Long term (current) use of systemic steroids; Z79.899 Other long term (current) drug therapy
CPT/HCPCS: 36415; 71046; 71275; 80048; 80053; 80074; 80306; 80307; 81003; 81025; 82595; 83520; 83605; 83615; 83735; 83880; 84484; 85025; 85379; 85652; 86038; 86160; 86200; 86225; 87040; 87086; 87389; 93005; 93306; 96361; 96365; 96374; 96375; J0456; J0692; J1650; J2270; J2920; J2930; J3490; J7050; Q9966